=== PATIENT | male | born 1945 | race Caucasian/White ===

== ENCOUNTER 2016-10-16 00:32 | Inpatient (IN) | payer OTHER, MEDICAID ==
[2016-10-16] VITALS (18 sets, daily range): BP systolic 52–127; BP diastolic 40–92
[~2016-10-16] VITALS: Ht 180.3 cm; Wt 68.0 kg
[~2016-10-16 00:32] MED LIST: APAP/HYDROCODON1 T13 PO; BACO TOP; CLEOCIN HCL300 MG PO; COL100 PO; COLACE100 MG PO; COU10 PO; COUMADIN5 MG PO; DILAUDID2 MG PO; ECO81 PO; FLO4 PO; GABAPENTIN100 M2 PO; HIBICLENS118 ML TOP; HYT5 PO; LAC PO; LEVOTHYROXIN0.025 M2 PO; LOV40I SQ; MORPHINE SULFAT15 MG PO; MOTRIN800 MG PO; NEU300 PO; NOR10 PO; NOR10T PO; NORCO1 TA2 PO; NORVASC2.5 MG PO; OXYC; PRI20 PO; SERTRALINE HYDR50 M1 PO; SYN25 PO; TERAZOSIN HCL5 MG PO; TRAMADOL HCL50 MG PO; ULT50 PO; ZOC20 PO; ZOLOFT50 MG PO
--- NOTE | 2016-10-16 00:37 | NUR ---
REC'D A 70/M IN RM 1T BIBA WITH C/O ALOC. PER MEDIC, FOUND UN-RESPONSIVE AT HOME. UPON ARRIVAL, PT BAGGED-MASK, AND UNRESPONSIVE.
--- NOTE | 2016-10-16 00:37 | NUR ---
REC'D A 70/M IN RM 1T BIBA WITH C/O ALOC. PER MEDIC, PT HAD SUDDEN ONSET OF SOB X 30 MIN COTTON BALL BAGGER. THEN PT WAS PLACED ON CPAP. UPON ARRIVAL TO ED, MECHANICAL VENTILATION WITH BVM INITATED AND IO TO LEFT TIBIA. UPON ASSESSMENT, PT DID NOT RESPOND TO STERNAL RUB, RHONCHI SOUND MARIELY, DELAYED CAP REFILL. ON CM.
--- NOTE | 2016-10-16 00:38 | NUR ---
DR FREDERICK AT BEDSIDE FOR INTUBATION INSERTION.
--- NOTE | 2016-10-16 00:56 | NUR ---
DR FREDERICK AT BEDSIDE FOR EJ INSERTION. INITIATED 2500ML BOLUS. PLEASE SEE EMAR.
[2016-10-16 01:24] LABS: BASOPHIL % 0.3 % (0-2); PLATELET COUNT 240 x10^3mcL (130-400); RED CELL DISTRIBUTION WIDTH 14.4 % (11.5-14.5)
--- NOTE | 2016-10-16 01:37 | NUR ---
PT TAKEN TO CT VIA [employer]. ACCOMPANIED BY RT AND MYSELF.
[2016-10-16 01:45] LABS: T3 TOTAL 0.66 ng/mL
[2016-10-16 01:47] LABS: ALBUMIN 2.8 g/dL (3.4-5.0); ALKALINE PHOSPHATASE 25 U/L (46-116); ALT/SGPT 65 U/L (16-63); AST/SGOT 149 U/L (15-37); BILIRUBIN TOTAL 1.16 mg/dL (0.20-1.00); CALCIUM 7.2 mg/dL (8.5-10.1); CARBON DIOXIDE 18.6 mmol/L (21-32); CHLORIDE SERUM 96 mmol/L (98-107); CREATININE SERUM 1.4 mg/dL (0.7-1.3); GFR1 53 mL/min; GLUCOSE SERUM 245 mg/dL (74-106); SODIUM SERUM 129 mmol/L (136-145); TOTAL PROTEIN, SERUM 5.9 g/dL (6.4-8.2)
[2016-10-16 01:48] LABS: C REACTIVE PROTEIN < 0.2 mg/dL (<=0.9)
[2016-10-16 01:49] LABS: POTASSIUM SERUM 2.3 mmol/L (3.5-5.1)
[2016-10-16 01:50] LABS: CK-MB < 0.5 ng/mL (0-3.6); CREATINE KINASE 152 U/L (39-308)
[2016-10-16 01:58] LABS: FREE T4 1.18 ng/dL (0.76-1.46); FREE THYROXINE INDEX 3.2 ug/dL (1.4-4.5); T4(THYROXINE) 8.6 ug/dL (4.7-13.3)
--- NOTE | 2016-10-16 02:34 | NUR ---
MEDICATED PT FOR FEVER. PLEASE SEE EMAR.
--- NOTE | 2016-10-16 02:47 | NUR ---
INITIATED ZOSYN @100ML/HR. PLEASE SEE EMAR.
--- NOTE | 2016-10-16 03:00 | NUR ---
INITIATED MAG SULFATE @ 25ML/HR. PLEASE SEE EMAR.
--- NOTE | 2016-10-16 03:17 | NUR ---
INITIATED POTASSIUM IV @50ML/HR. PLEASE SEE EMAR.
[2016-10-16 03:42] LABS: microscopic required? YES
[2016-10-16 03:43] LABS: urine erythrocyte 3+ (NEGATIVE)
--- NOTE | 2016-10-16 03:57 | NUR ---
REPORT GIVEN TO DI OBRIEN TO ASSUME CARE OF THE PT.
--- NOTE | 2016-10-16 04:15 | NUR ---
PATIENT TRANSFERRED TO ICU VIA GURNEY ACCOMPANIED BY ED RN RT MATT, CHUTE OPERATOR, AND MYSELF. PATIENT TRANSFERRED TO ICU BED WITHOUT INCIDENT VIA DRAW SHEET METHOD. RECEIVED PATIENT WITH GCS SCORE 3. PT IS NONVERBAL, UNABLE TO MAKE NEEDS KNOWN, AND INTUBATED, ETT #7.5, LL25, BREATHING EASY AND UNLABORED VIA VENT WITH THE FOLLOWING SETTINGS: VT 500, PEEP 5, RATE 15, FIO2 70%. PUPILS 2MM AND SLUGGISH BILAT. PT RECEIVED ETOMIDATE AND SUCCINYLCHOLINE IN ED. NO SCLERAL EDEMA. GLOSSY APPEAREANCE TO EYES BILAT. NO DRAINAGE FROM EYES/EARS/NARES. TREACHEA MIDLINE. OGT IN PLACE AND SECURED, AWAITING DR ORDER "OK TO USE". REJ, LT HAND, AND LT IO IN PLACE, CDI, PATENT AND FLUSHING WELL. LT HAND IV SELF D/C UPON ARRIVAL TO UNIT. POTASSIUM CHLORIDE 20MEQ/50ML BAG INFUSING VIA RT HAND IV. LUNG SOUNDS DIMINISHED BILAT. S1, S2 AUSCULTATED. CHEST WALL STABLE. NO S/S OF CP. SKIN IS DRY AND COOL TO TOUCH. CAP REFILL <3 SEC TO BUE AND DELAYED TO BLE. PERIPHERAL PULSES WEAK TO BUE AND BLE. NO EDEMA NOTED. PASSIVE ROM X 4 EXTREMITIES. FOOTDROP TO RLE NOTED. SKIN DISCOLORATION NOTED TO BUE/TORSO/GENITAL/BLE. ABDOMEN FIRM, FLAT, AND NONTENDER TO PALPATION PER FLACC SCALE. NORMOACTIVE BOWEL SOUNDS X 4. LARGE LOOSE BM X1 UPON ARRIVAL TO ICU. LIGHT BROWN COLOR. ROGERS CATHETER DRAINING TO GRAVITY DRAINAGE BAG, CHRISTY COLORED URINE NOTED NO PENILE DISCHARGE. BED IN LOWEST POSITION, SIDE RAILS X2, CALL LIGHT WITHIN REACH, WILL CONTINUE TO MONITOR.
[2016-10-16 04:29] LABS: AMPHETAMINE QUAL UR POSITIVE (NEG <=1000)
--- NOTE | 2016-10-16 04:45 | NUR ---
DR MCCARTY AT BEDSIDE FOR ASSESSMENT, UPDATES PROVIDED, ALL QUESTIONS AND CONCERNS ADDRESSED. NEW ORDERS RECEIVED. WILL CONTINUE TO MONITOR.
--- NOTE | 2016-10-16 05:00 | NUR ---
RT AT BEDSIDE, FIO2 SETTING CHANGED TO 60%, OTHER SETTINGS REMAIN UNCHANGED.
--- NOTE | 2016-10-16 06:01 | NUR ---
DR TOLEDO AT BEDSIDE FOR ASSESSMENT, UPDATES PROVIDED, ALL QUESTIONS AND CONCERNS ADDRESSED. WILL CONTINUE TO MONITOR.
--- NOTE | 2016-10-16 06:05 | NUR ---
RT AT BEDSIDE, FIO2 SETTING CHANGED TO 50%, OTHER SETTINGS REMAIN UNCHANGED.
[2016-10-16 06:06] LABS: CHOLESTEROL/HDL RATIO 4.6; MAGNESIUM 1.4 mg/dL (1.8-2.4); PHOSPHOROUS 2.4 mg/dL (2.5-4.9)
--- NOTE | 2016-10-16 07:40 | NUR ---
PER MD ORDER, URINE OSMAL AND LYTES COLLECTED AT THIS TIME AND SENT TO LAB FOR EVALUATION.
--- NOTE | 2016-10-16 08:19 | NUR ---
PT RR INCREASING TO 33. FLACC = 7. MEDICATING WITH MORPHINE SULFATE 2 MG IVP.
--- NOTE | 2016-10-16 09:29 | NUR ---
PT IS INTUBATED WITH ETT AN OGT.ETT SIZE 7.5, 25LL ETT TO VENT AC/VCV, VT 500, FIO2 50%, PEEP 5, RATE 15. PT UNRESPONSIVE TO STERNAL RUB. BILATERALLY FIXED 2MM PUPILS. RIGHT, LEFT LUNG SOUNDS DIMINISHED. CHEST RISE IS SYMMETRICAL. USE OR ABDOMINAL MUSCLES NOTED. S1 &S2 NOTED, SINUS TACHY, CHEST WALL IS STABLE. SKIN IS COOL AND DRY TO TOUCH. PT HAS DISCOLORATION TO FOREHEAD, BUE, TORSO, GENITALS, AND BLE. SLUGGISH CAP REFILL, PERIPHERAL PULSES WEAK NOTED UPON PALPATION. GENERALIZED WEAKNESS WITH PASSIVE FULL ROM. POSITIONED Q2H. CURRENTLY NPO. ABDOMEN IS SOFT, ROUND, AND NONTENDER TO PALPATION. BM 10/16/16, LOOSE BROWN STOOL. ROGERS TO GRAVITY, CHRISTY COLOR URINE WITH BLOOD NOTED IN URINE. RIGHT EJ IN PLACE CURRENTLY INFUSING 10MCG/KG/MIN OF PROFOPOL, REJ ALSO INFUSING 125M/HR NS. PT HAS PERIPHERAL IV IN LEFT FOREARM, AND LEFT IO ON BLE. PT HAS POSITIVE FAMILY DYNAMICS.
--- NOTE | 2016-10-16 09:34 | NUR ---
TD/LMT ECHO PERFORMED ORDERED.
--- NOTE | 2016-10-16 09:57 | NUR ---
PATIENT WITH LARGE DARK LOOSE STOOL. SENT STOOL FOR OB STOOL. DR TURNER AND DR HUDSON ON UNIT AND MADE AWARE.
--- NOTE | 2016-10-16 10:06 | NUR ---
PT RR INCREASED INTO MID TO HIGH 30S. CHANGED TO PC 15 RR 14 RR NOW 17 VT [id number] CHARGE NURSE NOTIFIED SHE WILL CALL MD FOR ORDER FOR ABG.
--- NOTE | 2016-10-16 10:40 | NUR ---
RECEIVED CALL FROM [facility] STATING THAT SPUTUM IS CONTAMINATED WITH SALIVA. RT MADE AWARE AND WILL RECOLLECT CULTURE.
--- NOTE | 2016-10-16 10:45 | NUR ---
PATIENT WITH LABORED BREATHING. RESPIRATIONS IN 30'S. WILLY RT AT BEDSIDE AND CHANGED VENT SETTINGS TO PRESSURE CONTROL PS15, RATE 14, PEEP 5, FIO2 50%. PATIENT APPEARS MUCH MORE RELAXED WITH RR 18-22 AND NO LABORED BREATHING NOTED. ABG TO FOLLOW PER MD ORDER. WILL CONTINUE TO MONITOR.
--- NOTE | 2016-10-16 11:10 | NUR ---
WILLY JADE TELEPHONED UNIT AND REPORTED ABG. DR HUDSON ON UNIT AND MADE AWARE. NO NEW ORDERS RECEIVED. WILL CONTINUE TO MONITOR.
--- NOTE | 2016-10-16 11:34 | NUR ---
US TECH, DR HUDSON AND DR TURNER AT BEDSIDE. TIME OUT TAKEN FOR US GUIDED RIGHT VS LEFT IJ CENTRAL LINE PLACEMENT. [address] TO [address] TURNER. WILL CONTINUE TO MONITOR.
[2016-10-16 11:51] LABS: CALCIUM 7.8 mg/dL (8.5-10.1); CARBON DIOXIDE 16.8 mmol/L (21-32); CHLORIDE SERUM 102 mmol/L (98-107); CREATININE SERUM 1.1 mg/dL (0.7-1.3); GFR1 > 60 mL/min; GLUCOSE SERUM 115 mg/dL (74-106); POTASSIUM SERUM 3.2 mmol/L (3.5-5.1); SODIUM SERUM 133 mmol/L (136-145)
--- NOTE | 2016-10-16 12:10 | NUR ---
PATIENT'S DAUGHTER BROUGHT ALL OF PATIENT'S HOME MEDICATIONS TO THE UNIT TO COMPLETE MED REC. UPON REVIEW OF PATIENT'S MEDICATIONS, IT IS NOTED THAT ALL PAIN MEDICATIONS DISPENSED IN BUBBLE PACKS ARE COMPLETELY EMPTY. REFILL DATES ARE RECENT 10/05/16. DR HUDSON AND DR TURNER ON UNIT AND MADE AWARE. COPY OF EMPTY BUBBLE PACKS TAKEN AND PLACED IN CHART.
[2016-10-16] MEDS ORDERED: MORPHINE SULFAT60 MG (12:44)
[2016-10-16] MEDS ORDERED: CLONIDINE HCL0.1 MG (12:48)
--- NOTE | 2016-10-16 12:49 | NUR ---
PT'S DAUGHTER AT BEDSIDE, STS THAT PT'S CAREGIVER HAD RAISED CONCERN THAT PT IS ABUSING PRESCRIBED PAIN MEDICATIONS AND THAT THE CAREGIVER WAS NOT ABLE TO CONTROL THE PT'S BEHAVIOR AND WAS RECOMMENDING THAT THE PT GO BACK TO A CONVALESCENT HOME. PT'S DAUGHTER STS THAT THE FAMILY WAS GOING TO MEET WITH THE PT TODAY AND DISCUSS HAVING PT GO BACK TO A CONVALESCENT HOME, BUT THE EVENTS LEADING UP THE PT'S HOSPITALIZATION TRANSPIRED LAST NIGHT. PT'S DAUGHTER ALSO STS THAT PT'S SON FOUND A GLASS PIPE/CRACK PIPE AT THE PT'S RESIDENCE WHEN RETREIVING HOME MEDS FOR MED REC.
--- NOTE | 2016-10-16 12:53 | NUR ---
DR YAÑEZ AT BEDSIDE TO ASSESS PT. DISCUSSED WITH PT'S DAUGHTER ON PT'S STATUS, POC, AND OUTLOOK AT THIS TIME.
--- NOTE | 2016-10-16 12:55 | NUR ---
VERSED TITRATED TO 2 MG/HR AND FENTANYL @ 1 MCG/KG/HR D/T AGITATION AND LOW MINUTE VOLUME.
[2016-10-16] MEDS ORDERED: COUMADIN6 MG (13:01)
[2016-10-16] MEDS ORDERED: COUMADIN1 MG (13:01)
[2016-10-16] MEDS ORDERED: LOPERAMIDE HCL2 M1 (13:02)
[2016-10-16] MEDS ORDERED: PHOSLO667 MG (13:04)
[2016-10-16] MEDS ORDERED: SENNA8.6 M2 (13:05)
[2016-10-16] MEDS ORDERED: TRA100 (13:07)
--- NOTE | 2016-10-16 14:14 | NUR ---
3600 UNITS OF HEPARIN GIVEN IVP FOR LOADING DOSE, HEPARIN DRIP INITIATED @ 700 UNITS/HR. FENTANYL TITRATED TO 0.5 MCG/KG/HR AND VERSED TO 0.5 MG/HR D/T BP 80/64.
--- NOTE | 2016-10-16 19:00 | NUR ---
RECEIVED REPORT FROM SCARLETT SEVILLA, UPDATES PROVIDED, WILL ASSUME TOTAL CARE.
--- NOTE | 2016-10-16 19:05 | NUR ---
RECEIVED PATIENT SEDATED ON FENT 2MCG/HR AND VERSED 2 MG/HR. MRSS 4. PT NONVERBAL DUE TO ETT. PT HAS NO EYE OPENING RESPONSE. PT FLEXES TO PAIN. GCS SCORE 5. PUPILS 2MM AND SLUGGISH RESPONSE TO LIGHT BILAT. PT HAS ETT AND OGT IN PLACE & SECURED. NO SCLERAL EDEMA NOTED. TRACHEA IS MIDLINE. NO DRAINAGE FROM EYES/EARS/NARES. RIJ TLC IN PLACE, CDI, PATENT AND INFUSING. ETT #7.5, 25LL. ETT TO VENT PCV MODE PRESSURE 15 FIO2 50, RATE 14, PEEP 5 LUNG SOUNDS DIMINISHED BILATERALLY. CHEST RISE SYMMETRICAL AND UNLABORED BREATHING VIA VENT. SCANT CLEAR SECRETIONS NOTED. S1, S2 AUSCULTATED. CHEST WALL STABLE. NO S/S OF CP AT THIS TIME. SKIN IS DRY AND WTT. PERIPHERAL PULSES WEAK TO BUE AND BLE. CAP REFILL IS <3 SEC TO BUE AND DELAYED TO BLE. CVP 5, FOB CALIBRATED PER PROTOCOL. GENERALIZED WEAKNESS, PASSIVE FULL ROM X 4 EXTREMITIES. FOOTDROP NOTED TO RLE. PT REPOSITIONED Q2H PER PROTOCOL. NO DIET ORDER AT THIS TIME. NO N/V/D NOTED. PT ABD IS SOFT, FLAT, AND NONTENDER TO PALPATION. ACTIVE BOWEL SOUNDS X4Q. NO BM NOTED AT THIS TIME. ROGERS CATHETER TO GRAVITY DRAINAGE BAG, CHRISTY COLOR URINE NOTED. NO PENILE DRAINAGE NOTED. SKIN DRY, WTT, INTACT. BED IN LOWEST POSITION, HOB ELEVATED 30 DEGREES, ORAL CARE PROVIDED PER VAP PROTOCOL. CALL LIGHT WITHIN REACH. WILL CONTINUE TO MONITOR.
--- NOTE | 2016-10-16 19:44 | NUR ---
PTT RESULT >150, HEPARIN GTT STOPPED PER PROTOCOL, WILL AWAIT LAB RESULT.
--- NOTE | 2016-10-16 20:00 | NUR ---
RT AT BEDSIDE.
--- NOTE | 2016-10-16 21:30 | NUR ---
LAB AT BEDSIDE.
--- NOTE | 2016-10-16 22:57 | NUR ---
PTT RESULT 80.2 HEPARIN GTT RESUMED TO 600U/HR PER PROTOCOL.
[2016-10-16 23:06] LABS: ERYTHROCYTE SED RATE 2 mm/hr (0-20)
[2016-10-17] VITALS (17 sets, daily range): BP systolic 70–140; BP diastolic 59–89
--- NOTE | 2016-10-17 00:15 | NUR ---
PATIENT HAD LARGE LOOSE, WATERY BOWEL MOVEMENT X 1. HYGIENE PROVIDED, LINENS CHANGED, NO SIGNS OF REDNESS IN JESSICA-AREA.
--- NOTE | 2016-10-17 01:30 | NUR ---
RT AT BEDSIDE.
--- NOTE | 2016-10-17 03:00 | NUR ---
LAB AT BEDSIDE
[2016-10-17 03:55] LABS: CARBON DIOXIDE 20.3 mmol/L (21-32); CHLORIDE SERUM 108 mmol/L (98-107); CREATININE SERUM 1.1 mg/dL (0.7-1.3); GFR1 > 60 mL/min; GLUCOSE SERUM 99 mg/dL (74-106); MAGNESIUM 1.9 mg/dL (1.8-2.4); PHOSPHOROUS 3.6 mg/dL (2.5-4.9); POTASSIUM SERUM 3.2 mmol/L (3.5-5.1); SODIUM SERUM 139 mmol/L (136-145)
--- NOTE | 2016-10-17 04:17 | NUR ---
PATIENT HAD LARGE LOOSE, WATERY BOWEL MOVEMENT X 1. HYGIENE PROVIDED, LINENS CHANGED, ROGERS CARE PROVIDED, NO SIGNS OF REDNESS IN JESSICA-AREA.
--- NOTE | 2016-10-17 04:20 | NUR ---
PTT RESULT 98.1 HEPARIN GTT TO BE HELD FOR 1 HOUR AND INFUSION TO BE REDUCED BY 200 UNITS/HR PER PROTOCOL. WILL AWAIT LAB PTT RESULT.
--- NOTE | 2016-10-17 04:24 | NUR ---
RT AT BEDSIDE.
[2016-10-17 04:25] LABS: BASOPHIL % 0 % (0-2); RED CELL DISTRIBUTION WIDTH 15.1 % (11.5-14.5)
[2016-10-17 04:26] LABS: PLATELET COUNT 80 x10^3mcL (130-400)
--- NOTE | 2016-10-17 05:15 | NUR ---
DR KING AT BEDSIDE FOR ASSESSMENT, UPDATES PROVIDED, ALL QUESTIONS AND CONCERNS ADDRESSED. NEW ORDERS RECEIVED. WILL CONTINUE TO MONITOR.
--- NOTE | 2016-10-17 05:20 | NUR ---
HEPARIN GTT DECREASED TO 400U/HR.
--- NOTE | 2016-10-17 05:22 | NUR ---
RT AT BEDSIDE. FIO2 DECREASED TO 40%, OTHER VENT SETTINGS REMAIN UNCHANGED.
--- NOTE | 2016-10-17 05:47 | NUR ---
DR TOLEDO AT BEDSIDE FOR ASSESSMENT, UPDATES PROVIDED, ALL QUESTIONS AND CONCERNS ADDRESSED. NO NEW ORDERS RECEIVED. WILL CONTINUE TO MONITOR.
--- NOTE | 2016-10-17 07:00 | NUR ---
RECEIVED REPORT FROM NOC SHIFT RN CAMILLE, ALL QUESTIONS AND CONCERNS ADDRESSED AT THIS TIME, WILL ASSUME ALL CARE.
--- NOTE | 2016-10-17 07:19 | NUR ---
REPORT GIVEN TO NUNU SEVILLA, UPDATES PROVIDED, ALL QUESTIONS AND CONCERNS ADDRESSED.
--- NOTE | 2016-10-17 07:30 | NUR ---
RECEIVED PT INTUBATED WITH 7.5 ETT, 25 LL, ON PC, PRESSURE 15, PEEP 5, FI02 40%, RATE 14, BUL RHONCHI, BLL CLEAR, NO SECRETIONS REMOVED AND ORAL CARE PROVIDED PER VAP PROTOCOL. PT SEDATED ON 2 MCG/KG/HR FENT, 2 MG/HR VERSED, RSS 4, PT HAS A BRISK RESPONSE TO PAINFUL STIMULI BUT DOES NOT FOLLOW COMMANDS, EYES DO NOT OPEN SPONTANOUSLY, PUPILS ARE SLUGGISH 2 MM BILATERALLY, NO S/S OF HEADACHE. PT WITH RIJ INFUSING, NS 126, K RIDER, HEPARIN 400 UNITS/HR, ALL PORTS PATENT AND FLUSHING WITH CDI DRESSING. PT HAS OGT IN PLACE, ABD IS SOFT, FLAT, SYMMETRICAL AND NONTENDER TO PALPATION PER FLACC SCALE, PT HAS HYPERACTIVE BOWEL SOUNDS X 4 QUADRANTS, PT WITH FLEXISEAL RECTAL TUBE IN PLACE DRAINING TO GRAVITY LOOSE DARK BROWN STOOL. PT HAS ROGERS CATH IN PLACE DRAINING TO GRAVITY CHRISTY COLORED URINE, NO PENILE DISCHARGE OR SCROTAL EDEMA NOTED. PT SKIN IS INTACT WITH VITILIGO THROUGHOUT BODY. PT ON SPANISH MOSS PICKER, SINUS TACHYCARDIA NOTED, NO PVCS NOTED. WILL CONTINUE TO MONITOR PT AT THIS TIME.
--- NOTE | 2016-10-17 08:05 | NUR ---
MAKAYLA RT AT BEDSIDE FOR BREATHING TX.
--- NOTE | 2016-10-17 08:59 | NUR ---
DR. GARCIA, RESIDENTS, HOME IMPROVEMENT ADVISOR AND PRIMARY RN AT BEDSIDE FOR MORNING ROUNDS. PLAN OF CARE DISCUSSED. WILL CONT TO MONITOR.
--- NOTE | 2016-10-17 09:10 | NUR ---
HEPARIN DRIP DC'D AT THIS TIME PER DR.FERNANDEZ SMITH.
--- NOTE | 2016-10-17 09:11 | NUR ---
MAKAYLA RT AT BEDSIDE FOR ABG.
--- NOTE | 2016-10-17 10:32 | NUR ---
Initial Nutrition Assessment Dx: Acute Respiratory Failure with Sepsis, Non Stemi PMHx: DM, hepatitis C, neuropathy in hands and feet bilaterally, hypothyroidism, depression, BPH, HTN PSHx: L archillies tendon surgical repair (11 years old), vasectomy (1979), abd abscess I&D Labs: K 3.2 L, BG 99, BUN 28 H, WBC 11.8 H, H/H 11.7/35 L; (10/16) ALB 2.8 L, TBili 1.16 H, AST 149 H, ALT 65 H, LDL 105 H, Troponin 0.56 H, Lipase 622 H, A1C 6.4 H, Ammonia 56 H, Lactic Acid 4.4 H Meds: Colace, D50, humulin R, lactulose syrup, morphine, KCl, Pepcid, NS IV, theragran, versed, zofran Current Diet Order: N/A Ht: 71", 5' 11". Wt: 150 lb, 68 kg. BMI: 20.9 kg/m2 (Normal) IBW: 172 lb, 78 kg. %IBW: 87%. UBW: Daughter unsure, however, stated that pt looks about the same weight. Age: 70 Y/O M Food Allergies: Skin: Intact. Dayo 10. No pressure injuries per RN. Edema: None GI: Abd soft, flat, non-tender. Hyperactive bowel sounds. Last BM 10/17. Flexiseal in place. Loose dark brown stool. Noted pt on lactulose syrup. Stool Output: (10/16) x5; (10/17) x2 I/O: 3257/1606 (+1651 ml) Nutrition Consult: Tube Feeding, pt intubated and sedated. Thank you for your consult. Pt found with acute respiratory failure secondary to possible aspiration pneumonia vs pleural effusion vs CVA, possible severe sepsis, likely secondary to aspiration pneumonia per doctor's notes. Per doctor's progress note 10/17, pt had 2 loose stools overnight, flexiseal was attempted yesterday, will reattempt today, Dr. Vogel consulted, INR >2 stop heparin drip, intubated on fentanyl, pt intubated and sedated. Pt seen +intubated, sedated, +ETT to vent support, +OGT in place, daughter at bedside during RD visit, participated in RD verbal interview. Problem with: N: None. V: None. D: None. C: None. Problems with: Chewing: Yes. Pt has no teeth per daughter, has dentures but misplaced them. Swallowing: None. Noted pt is intubated at this time Recent Weight Change: None per daughter. % Weight Change: N/A Vitamin/Supplement use: Ensure - Per daughter, stated that pt has been receiving Ensure oral supplements but unsure if pt has been drinking them Diet at Home: Regular; Has very good appetite prior to admission Physical Activity: Bed bound Education: RD explained rationale for tube feeding pt, daughter verbalizes understanding. Estimated Nutritional Needs Based CBW 150 lb, 68 kg. Temperature: 98.7 F/37 C. Ventilator in L/min: 9.6. Energy: 1675 kcal/day (PSU 2003b for Ventilator Support) Protein: 102-136 gm/day (1.5-2 gm/kg for Acute Respiratory Failure, Sepsis) Fluids: 1700 ml/day (25 ml/kg for Geriatric Maintenance) or per doctor Nutrition Diagnosis Increase nutritional (energy, protein) needs related to increase metabolic demands as evidenced by pt with possible severe sepsis, elevated WBC 11.8, lactic acid 4.4 Intervention 1. Consider advance diet per doctor if/when medically appropriate. 2. If nutrition support is warranted, consider initiation of TF Nutren Pulmonary at 20 ml/hr, increase 10 ml Q6h to goal 45 ml/hr, ProSource TID, Free Water Flush: 100 ml Q6h via OGT. This provides 1800 kcal (107% of kcal goal), 118 gm protein (100% of protein goal), 1245 ml free water daily. 3. Replete K+ Monitor/Evaluate Goal: NPO <5-7 days; Diet advancement Monitor: NPO status, diet advancement, labs (ammonia, BG), skin integrity, GI function F/U in 2-3 days as HIGH risk (10/19-10/20)
--- NOTE | 2016-10-17 11:13 | NUR ---
FENT TITRATED DOWN TO 1 MCG/KG/HR AT THIS TIME IN PREPARATION FOR CPAP TRIALS PER .
--- NOTE | 2016-10-17 12:10 | NUR ---
AT BEDSIDE, UPDATES PROVIDED. TO ORDER 250 ML NS BOLUS AND ADD COUMADIN NG. PAGED AT THIS TIME FOR DIET ORDERS PER FNS CONSULT RECOMMENDATIONS. WILL CONTINUE TO MONITOR.
--- NOTE | 2016-10-17 12:25 | NUR ---
CPAP TRIAL STARTED AT THIS TIME. CPAP 10, PSV 10, FIO2 30%. RR 17, VT 704, O2 98%, HR 110, BP 85/69 Pt RESPONDING TO VERBAL COMMANDS. WILL MONITOR.
--- NOTE | 2016-10-17 12:25 | NUR ---
MAKAYLA RT AT BEDSIDE TO PLACE PT ON CPAP 01/17 AT THIS TIME. WILL CONTINUE TO MONITOR PT.
--- NOTE | 2016-10-17 12:38 | NUR ---
AT BEDSIDE, UPDATES PROVIDED, PER , EXCERCISE PT FOR 30 MINUTES AND LOWER SEDATION NEEDED. PT ABLE TO FOLLOW COMMANDS AT THIS TIME AND TOLERATING CPAP MODE. WILL CONTINUE TO MONITOR PT.
--- NOTE | 2016-10-17 13:05 | NUR ---
PATIENT SWITCHED BACK TO A/C MODE PER DR. MARADIAGA. VENT SETTINGS: VC 14, 500, +5, 30%. RN NOTIFIED, WILL MONITOR.
--- NOTE | 2016-10-17 16:00 | NUR ---
NUTREN PULMONARY 20 ML/HR WITH A FWF OF 100 Q6H INITIATED VIA OGT AT THIS TIME VIA DR ORDER. WILL ADVANCE TOLERATED PER DR ORDER.
--- NOTE | 2016-10-17 16:07 | NUR ---
PT RECTAL TUBE LEAKED AT THIS TIME. PT CLEANSED AND NEW LINEN PROVIDED. WILL CONTINUE TO MONITOR PT AT THIS TIME.
--- NOTE | 2016-10-17 16:43 | NUR ---
PT GIVEN FULL BED BATH WITH GOWN AND LINEN CHANGE, CHG WIPES USED PER PROTOCOL AND ROGERS CARE PROVIDED PER PROTOCOL. WILL CONTINUE TO MONITOR PT AT THIS TIME.
--- NOTE | 2016-10-17 19:20 | NUR ---
REPORT RECEIVED FROM NUNU SEVILLA TO ASSUME CARE. ALL QUESTIONS AND CONCERNS ADDRESSED.
--- NOTE | 2016-10-17 21:55 | NUR ---
NUTREN PULMONARY INCREASED TO 30 ML/HR AT THIS TIME, GOAL OF 45. GASTRIC RESIDUAL OF 30 ML, TOLERATING WELL. WILL CONTINUE TO MONITOR.
--- NOTE | 2016-10-17 22:20 | NUR ---
RT AT BEDSIDE TO ASSESS PT.
[2016-10-18] VITALS (17 sets, daily range): BP systolic 104–139; BP diastolic 76–101; Ht 180.3 cm; Wt 68.0 kg
--- NOTE | 2016-10-18 00:25 | NUR ---
RT AT BEDSIDE TO ASSESS PT.
--- NOTE | 2016-10-18 04:40 | NUR ---
RECEIVED REPORT FROM DI MELGOZA, WILL ENDORSE CARE
--- NOTE | 2016-10-18 04:40 | NUR ---
REPORT GIVEN TO WANDA SEVILLA TO ASSUME CARE. ALL QUESTIONS AND CONCERNS ADDRESSED.
--- NOTE | 2016-10-18 06:03 | NUR ---
SEDATION VACATION STARTED, SCD'S APPLIED, WILL CONTINUE TO MONITOR.
--- NOTE | 2016-10-18 06:25 | NUR ---
PT FOLLOWING COMMANDS CAN RESPOND TO YES NO QUESTIONS, WILL CONTINUE TO MONITOR
--- NOTE | 2016-10-18 06:50 | NUR ---
NUTREN PULMONARY TITRATED TO 40ML/HR, TOLERATING. WILL CONTINUE TO MONITOR
--- NOTE | 2016-10-18 07:10 | NUR ---
REPORT GIVEN TO RN MIN, ALL QUESTIONS ADDRESSED, WILL ENDORSE CARE
--- NOTE | 2016-10-18 07:25 | NUR ---
DR. MARADIAGA IN ROOM ASSESSING PT. PER DR. MARADIAGA PT IS TO BE PUT ON CPAP TODAY FOR WEANING.
--- NOTE | 2016-10-18 08:01 | NUR ---
PT IS REPSONSIVE VERBAL STIMULIS AND WITHDRAWLS FROM PAIN. BL EQUAL PUPILS REACTIVE TO LIGHT 2MM, SLUGGISH. PT IS ABLE TO FOLLOW VERBAL COMMANDS AND OFF SEDATION AT THIS TIME. 7.5 ETT TO VENT ON AC MODE. OGT IN PLACE AND SECURE. AC MODE SETTING 30%FIO2, VT 500, LPM 25, RATE 14, PEEP 5. VAP CARE PROVIDED. LIGHT WHITE SCANT PLEGHM FROM IN LINE SUCTION. BL UPPER LOBES RONCHI LUNG SOUNDS, DIMINISH BL BASES. SYMMETRIC CHEST RISE. TRACE EDEMA TO BLE. SCD IN PLACE, CAP REFILL <3SEC. S1S2 PRESENT UPSON AUSCULATIONS. NO SIGNS OF CHEST PAIN. PT IS COOL TO TOUCH. SKIN INTACT. PT ON NUTREN PUL CONTINEUOUS FEEDING AT 30ML/HR FLUSHES 100ML OF WATER Q H6RS. 30ML OF STOMACH RESIDUALS. BS ACTIVE X4, NON TENDER ABD PALPATIONS. FLEXITUB IN PLACE, LOOSE DARK ARECHIGA COLOR. RIJ IN PLACE AND PATENT. TRACHEA AT MIDLINE. NO DRAINAGE NOTED FROM EENT. NS INFUSING AT20ML/HR. BED AT LOW AND CALL LIGHT WITHIN REACH.
--- NOTE | 2016-10-18 08:06 | NUR ---
RT YESSICA IN ROOM IMPLMENTING BREATHING TX. PT TOLERATING WELL.
--- NOTE | 2016-10-18 08:07 | NUR ---
RT YESSICA AT BEDSIDE TO PUT PT ON CAP, PT TOLERATING WELL.
--- NOTE | 2016-10-18 08:28 | NUR ---
DR. GARCIA, RESIDENTS, DIVISION OFFICER [employer] DEPARTMENT AND PRIMARY RN AT BEDSIDE FOR MORNING ROUNDS. PLAN OF CARE DISCUSSED. PT CURRENTLY ON CPAP. WILL CONT TO MONITOR.
--- NOTE | 2016-10-18 10:06 | NUR ---
ELEVATED HR TRENDING IN HIGH 120'S B/P 163/103 RSS 5, STARTED FENTALY AT 0.5MCG/KG/HR AND VERSED AT 1MG/HR. WILL TIATRATE DRIPS TO RSS 3. WILL CONTINUE TO MONITOR. BED AT LOW AND CALL LIGHT WITHIN REACH.
--- NOTE | 2016-10-18 10:32 | NUR ---
PT'S B/P 158/105 INCREASED FENANYL TO 1MG/HR.
--- NOTE | 2016-10-18 11:52 | NUR ---
PT IS SEDATED AT THIS TIME RSS 5 INFUSING FENTANL AT 1MG/KG/HR, VERSED AT 1MG/HR. PT WITHDRAWLS FROM PAINFUL STIMULIS. BL PUPILS EQUAL AND REACTIVE TO LIGHT 2MM, SLUGGISH. NO SIGNS OF ESTRELLA AND DIZZINESS. 7.5 ETT TO VENT. ON AC MODE 30% FIO2, LPM 25, RATE 14, PEEP 5, VT 500. VAP CARE PROVIDED AND NO OUTPUT FROM INLINE SUCTION. SYMMETRIC CHEST RISE. RHONCHI LUNG SOUNDS BL UPPER LOBES AND DMINISHED LUNG SOUND ON BL BASES. BS ACTIVE X4 QUADRANTS. ON NUTREN PUL CONTINEOUS FEEDING 30ML/HR AND FLUSHES 100ML OF WATER Q6HRS. FLEXISEAL IN PLACE, DARK ARECHIGA COLOR BM. ROGERS CATH DRAINING BY GRAVITY DARK TEA COLOR URINE. NO CLOTS OR SEDIMENTS IN URINE. BED AT LOW AND CALL LIGHT WITHIN REACH.
[2016-10-18 12:37] LABS: BASOPHIL % 0.4 % (0-2)
[2016-10-18 12:38] LABS: CARBON DIOXIDE 20.2 mmol/L (21-32); CHLORIDE SERUM 114 mmol/L (98-107); CREATININE SERUM 0.9 mg/dL (0.7-1.3); GFR1 > 60 mL/min; GLUCOSE SERUM 156 mg/dL (74-106); SODIUM SERUM 142 mmol/L (136-145)
[2016-10-18 12:39] LABS: POTASSIUM SERUM 2.5 mmol/L (3.5-5.1)
[2016-10-18 12:47] LABS: PLATELET COUNT 93 x10^3mcL (130-400); RED CELL DISTRIBUTION WIDTH 15.6 % (11.5-14.5)
--- NOTE | 2016-10-18 14:21 | NUR ---
PT RECIEVING BREATHING TX AT BEDSIDE. PT TOLERATING TX WELL.
--- NOTE | 2016-10-18 15:25 | NUR ---
PT IS SEDATED WITH FENTANL INFUSING AT 1MCG/KG/HR, VERSED AT 1MG/HR RSS5. WILL TIATRATE SEDATION RSS 4. BL PUPILS EQUAL AND NONREACTIVE TO LIGHT 1MM, FIXED. PT REPONSED TO PAINFUL STIMULIS. RIJ PATENT AND INTACT, TRACHEA AT MIDLINE. 7.5 ETT TO VENT AND OGT TUBE IN PLACE AND SECURE. PT ON AC MODE 30%FIO2, LPM25, RATE 14, VT 500, PEEP 5. VAP CARE PROVIDED, NO OUTPUT FROM INLINE SUCTION. DIMINISH BL LUNG SOUNDS. SYMMETRIC CHEST RISE. NO SIGNS OF SOB. NS INFUSING AT 20ML/HR TO RIJ. BS ACTIVE X4 QUADRANTS, ABD SOFT AND ROUND. 40ML OF RESIDUALS IN STOMACH, RESIDUALS RETURNED BACK TO PT. NO SIGNS OF FACIAL GRIMACING OR GAURDING. BED AT LOW AND CALL LIGHT WITHIN REACH.
--- NOTE | 2016-10-18 16:57 | NUR ---
DR. ONOFRE AT BEDSIDE ASSESSING PT.
--- NOTE | 2016-10-18 18:23 | NUR ---
PT HAS FACIAL GRIMACING AND PT GESTURED TO PAIN MEDICTION WHEN OFFERED. WILL MEDICATE PER EMAR.
--- NOTE | 2016-10-18 19:10 | NUR ---
REPORT RECEIVED FROM MIN RN. ALL QUESTIONS AND CONCERNS ADDRESSED. PT IS INTUBATED AND SEDATED ON FENTANYL AND VERSED. ETT TUBE CONNCETED TO VENTILATOR. RIJ PRESENT/SECURE. OGT PRESENT/SECURE. TUBE FEEDING INFUSING VIA PUMP. ROGERS CATHETER DRAINING YELLOW URINE TO GRAVITY. FLEXISEAL PRESENT AND DRAINING TO GRAVITY. SCD'S IN PLACE. 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 NO S/SX OF DISTRESS. BED IN VIEW OF NURSES STATION. WILL CONTINUE TO MONITOR.
--- NOTE | 2016-10-18 19:12 | NUR ---
REPORT GIVEN TO ABAD SEVILLA. ENDORSED ALL CARE.
--- NOTE | 2016-10-18 19:30 | NUR ---
TUBE FEEDING INCREASED TO GOAL RATE OF 45 ML/HR WITH FWF 100 ML Q6H. 10 ML OF MILKY GASTRIC RESIDUAL. WILL CONTINUE TO MONITOR.
--- NOTE | 2016-10-18 20:00 | NUR ---
RUTHY JADE AT BEDSIDE TO ADMINISTER BREATHING TREATMENT. WILL CONTINUE TO MONITOR.
[2016-10-19] VITALS (14 sets, daily range): BP systolic 122–157; BP diastolic 84–108
--- NOTE | 2016-10-19 04:07 | NUR ---
RUTHY JADE AT BEDSIDE FOR VENT CHECK.
[2016-10-19 05:37] LABS: BASOPHIL % 0.2 % (0-2)
[2016-10-19 05:43] LABS: CALCIUM 8.4 mg/dL (8.5-10.1); CARBON DIOXIDE 22.8 mmol/L (21-32); CHLORIDE SERUM 114 mmol/L (98-107); CREATININE SERUM 0.8 mg/dL (0.7-1.3); GFR1 > 60 mL/min; GLUCOSE SERUM 138 mg/dL (74-106); SODIUM SERUM 144 mmol/L (136-145)
[2016-10-19 05:44] LABS: POTASSIUM SERUM 2.8 mmol/L (3.5-5.1)
[2016-10-19 06:01] LABS: PLATELET COUNT 102 x10^3mcL (130-400); RED CELL DISTRIBUTION WIDTH 15.6 % (11.5-14.5)
--- NOTE | 2016-10-19 07:00 | NUR ---
REPORT RECEIVED AT THIS TIME AT BEDSIDE. ALL QUESTIONS ANSWERED, ALL CONCERNS ADDRESSED.
--- NOTE | 2016-10-19 07:20 | NUR ---
REPORT GIVEN TO JOSESITO SEVILLA. ALL QUESTIONS ANSWERED AND CONCERNS ADDRESSED.
--- NOTE | 2016-10-19 07:30 | NUR ---
PT ASSESSED AT THIS TIME. PT ON SEDATION VACATION AT THIS TIME FOR CPAP TRIAL. PT HAS BILAT SOFT WRIST RESTRAINTS IN PLACE FOR SAFETY. PT HAS OGT AND ETT IN PLACE AT THIS TIME. PT ON VENTILATOR. ROGERS IN PLACE DRAINING WELL. FLEXISEAL IN PLACE DRAINING MUCOID/LIQUID STOOL TO GRAVITY. WILL CONTINUE TO MONITOR PT'S STATUS THROUGHOUT SHIFT.
--- NOTE | 2016-10-19 08:00 | NUR ---
SEDATION REINITIATED AT THIS TIME VERSED AT 0.5MG/HR AND FENTANYL AT 1MCG/KG/HR
--- NOTE | 2016-10-19 08:40 | NUR ---
DR GARCIA AND RESIDENTS ROUNDING. UPDATES PROVIDED. NEW ORDERS RECEIVED
--- NOTE | 2016-10-19 11:05 | NUR ---
PT CONTINUES TO BE RESTLESS IN BED. VERSED INCREASED TO INITIAL RATE OF 1MG/HR
--- NOTE | 2016-10-19 11:37 | NUR ---
DR YAÑEZ IN TO SEE PT AT THIS TIME. UPDATES PROVIDED. NO NEW ORDERS RECEIVED.
--- NOTE | 2016-10-19 12:00 | NUR ---
PT REASSESSED AT THIS TIME. PT REMAINS ORALLY INTUBATED AT THIS TIME. SEDATION IN PLACE. VERSED AT 1MG/HR AND FENTANYL AT 1MCG/KG/HR. PT'S MRSS 4. PT HAS ROGERS CATHETER AND FLEXISEAL IN PLACE. NO ACUTE CHANGES NOTED IN PT STATUS. WILL CONTINUE TO MONITOR.
--- NOTE | 2016-10-19 13:20 | NUR ---
DR MARADIAGA AT BEDSIDE AT THIS TIME. UPDATES PROVIDED AT THIS TIME. PT PLACED ON CPAP /. ABG TO BE PERFORMED IN 30MIN.
--- NOTE | 2016-10-19 13:44 | NUR ---
WOUND CARE EVALUATION NOTE REASON FOR EVALUATION: LOW EMMANUEL SCORE COMPLETE SKIN ASSESSMENT DONE ON THIS 70 Y/O MALE ADMITTED FROM HOME TO [facility] WITH INITIAL DX: SEVERE RESPIRATORY DISTRESS AND PAST MEDICAL HX INCLUDE DM, NEUROPATHY, HEPATITIS C, HYPOTHYRODISM, DEPRESSION, BPH AND HTN. MEDICATIONS INCLUDE PIPERACILLIN, LEVOFLOXACIN, HUMANLIN R INSULIN, AND MORPHINE SULFATE. LABS ARE WBC 5.6, H/H 8.2/25 BLOOD GLUCOSE 132, PT/INR 15.2/1.4 AND ALBUMIN 2.8. PT. IS INTUBATED AND SEDATED, F/C #16FR PATENT WITH CHRISTY COLOR URINE OUTPUT, OGTF NUTREN PULMONARY AT 45ML/HR AND FWF 100 ML Q6H PT. TOLERATE WELL. DARK GREENISH LIQUID STOOL ABOUT 150ML IN BAG AND PRIMARY NURSE NOTIFY OF RECTAL TUBING LEACKAGE. PT. SKIN WAR, DRY AND INTACT, WNL. DARKER PIGMENTATION TO BLE , GROINS AND PERINEAL AREAS. ARTERIAL US DONE, SOME HAIR GROWTH BLE, DORSAL PEDAL PULSES PRESENT, AND STRONG, NO EDEMA, NO ERYTHEMA NOTICE. THICK TOE NAILS WITH CAPILLARY REFILL >3 SEC. PLAN OF CARE DISCUSSED WITH PRIMARY NURSE. INTEGUMENTARY: NASAL PASSAGE AND ORAL MEMBRANE DRY AND INTACT PERINEAL SLIGHTLY REDNESS-MAD LEFT AND RIGHT HEELS CALLUSES RECOMMENDATIONS: -CLEANSE PERINEAL AREA WITH SOAP AND WATER, PAT DRY, APPLY Z GUARD BID AND PRN IF SOILING TURN AND REPOSITION Q2H -ASSESS AND MONITOR SKIN CONDITION DURING POSITION CHANGE, PLEASE PAY ATTENTION ON PERINEAL AREA, KEEP DRY AND CLEAN AT ALL TIME. - OFF LOAD BILATERAL HEELS BY PLACING PILLOWS UNDER CALVES AT ALL TIMES, UNLESS OTHERWISE, CONTRAINDICATED. -PRESSURE REDISTRIBUTION SURFACE THERAPY. -CONTINUE RD RECOMMENDATIONS RECOMMENDATIONS DISCUSSED WITH PRIMARY PRIMARY RN WILL FOLLOW UP PT. Q7-10 DAYS AND PRN. PLEASE CONTACT WOUND CARE NURSE FOR ANY QUESTIONS.
--- NOTE | 2016-10-19 14:03 | NUR ---
ROBY JADE AT BEDSIDE FOR ABG
--- NOTE | 2016-10-19 14:40 | NUR ---
DR MARADIAGA AT BEDSIDE AT THIS TIME. ORDER RECEIVED TO EXTUBATE PT. PT IS TO BE KEPT ON UNIT X 24HOURS.
--- NOTE | 2016-10-19 14:45 | NUR ---
PT EXTUBATED AT THIS TIME. TOLERATED WELL.
--- NOTE | 2016-10-19 14:46 | NUR ---
RESTRAINTS REMOVED AT THIS TIME.
--- NOTE | 2016-10-19 14:49 | NUR ---
Follow-up Nutrition Assessment Dx:Acute respiratory failure with sepsis, non-stemi Labs: (10/19) K:2.8L, BH, BUN:29H, Ca:8.4L, H/H:8.2/25L, Ammonia:25 Meds: Colace, Humulin, KCL, Lactulose, Oscal, Pepcid, NS IV, Theragran, Zofran. TF order: Nutren Pulmonary @45ml/hr via OGT with ProSource TID TF intake: (10/18) 333ml (10/19) 455ml I/O: (10/19) 2803/1475(+1328ml), (10/18) 1852/1975(-123ml) Residuals: (10/19) 5ml Weights: (10/18)68kg (10/19)69.6kg Skin: intact Edema: scleral edema Last BM: 10/19, flexiseal in place, pt on lactulose. Pt admitted with acute respiratory failure secondary to possible aspiration pneumonia vs pleural effusion vs CVA, possible severe sepsis, likley secondary to aspiration penumonia per doctor's notes. Per doctor's progress note 10/19, pt had increase in blood pressure and agitation overnight possibly due to pain so morphine was given which lowered the blood pressure and pain. Pt had CPAP trial yesterday (10/18) and tolerated. Per bed huddle this morning, pt will have another CPAP trial today. During visit, observed pt +intubated, sedated, +ETT and OGT in place. TF running as ordered. Per RN, they haven't started CPAP trials for today. Pt is tolerating TF with minimal residuals. Estimated Nutritional Needs unchanged from prior assessment:CBW:150#, 68kg Energy: 1675kcal/day (PSU for ventilator support) Protein: 102-136g/day (1.5-2.0gm/kg for acute respiratory failure, sepsis) Fluid: 1700ml/day (25ml/kg for geriatric maintenance) or per doctor Nutrition Diagnosis 1. Increased nutritional (energy, protein) needs related to increase metabolic demands as evidenced by pt with possible severe sepsis, elevated WBC 11.8, lactic acid 4.4 (improving) Intervention 1. If unable to extubate, recommend continue with Nutren Pulmonary at 45ml/hr, with free water flush 100ml q6hr and Prosource TID, provides 1800kcal (107% of kcal goal) and 118gm of pro (100% pro goal), 1245ml free water daily 2. If able to extubate, consider bedside swallow evaluation or swallow evaluation per Speech Therapist to determine appropriate diet textures. 3. If able to extubate, consider CCHO diet with diet textures per Speech Therapist. Monitor/Evaluate Previous goal: NPO<5-7days; diet advancement (not met) Goal: TF intakes to meet at least 80% est needs with tolerance, NPO<5-7days, diet advancement Monitor: TF tolerance, NPO status, Labs(ammonia, BG), GI function F/U in 2-3 days as high risk:10/21-
--- NOTE | 2016-10-19 14:53 | NUR ---
1. If unable to extubate, recommend continue with Nutren Pulmonary at 45ml/hr, with free water flush 100ml q6hr and Prosource TID, provides 1800kcal (107% of kcal goal) and 118gm of pro (100% pro goal), 1245ml free water daily 2. If able to extubate, consider bedside swallow evaluation or swallow evaluation per Speech Therapist to determine appropriate diet textures. 3. If able to extubate, consider CCHO diet with diet textures per Speech Therapist.
--- NOTE | 2016-10-19 15:30 | NUR ---
PT REASSESSED AT THIS TIME. BREATHING EQUAL AND UNLABORED ON 2.5LPM VIA NC. PT ABLE TO FOLLOW COMMANDS AT THIS TIME. PT DENIES PAIN AND DISCOMFORT AT THIS TIME. WILL CONTINUE TO MONITOR.
--- NOTE | 2016-10-19 15:56 | NUR ---
FULL BED BATH AND LINEN CHANGE PROVIDED AT THIS TIME.
--- NOTE | 2016-10-19 17:31 | NUR ---
DR CURRY AT BEDSIDE AT THIS TIME. UPDATES PROVIDED. MADE AWARE THAT CVP 3
--- NOTE | 2016-10-19 20:31 | NUR ---
RECEIVED AWAKE ORIENTED TO SELF BUT NOT TO PLACE AND TIME,SLOW SPEECH ANSWERS APROPRIATELY.C/O PAIN ON RIGHT LEG WITH PAIN SCALE OF 9/10, MADE AWARE MEDICATED WITH MORPHINE 2 MG IVP PT COMMENTED HE NEEDS MORE.CARDIAC SCOPE SHOWS SR WITH HR 92 NO ECTOPIES.RIGHT IJ TLC INTACT WITH IVF D51/2NS AT 50 ML/H AND CVP MONITORING WITH -1 READING FOB CALIBRATED PER PROTOCOL.ABDOMEN SOFT HYPERACTIVE WITH FLEXISEAL DRAINING DARK GREEN LIQUID STOOL LEAKING PM FULL BATH AND COMPLETE LINEN CHANGE DONE.ROGERS TO GRAVITY DRAINAGE BAG.REPOSITIONED WITH PILLOW SUPPORT ON BACK AND BILATERAL HEELS OFFLOADED NOTED RIGHT FOOT DROP.BED ON LOW POSITION AND CALL LIGHT WITHIN REACH.
--- NOTE | 2016-10-19 23:00 | NUR ---
CALLING OUT NURSE C/O SHOULDER PAIN THIS TIME WITH PAIN SCALE OF 9/10.MEDICATED WITH MORPHINE 2 MG IV AND REPOSITIONED FOR COMFORT.
--- NOTE | 2016-10-19 23:24 | NUR ---
PT ASLEEP EASILY AROUSED AND WITH SLURRED SPEECH.SCOPE SHOWS SR HR 79.ON 2L/MIN O2 WITH SAT 100% NO RESPIRATORY DIFFICULTY NOTED.RIGHT IJ TLC INTACT WITH IVF AT 50 ML/H INFUSING WELL.FLEXISEAL AND ROGERS INPLACE AND DRAINING.CALL LIGHT WITHIN REACH AND BED ON LOW POSITION.PT REPOSITIONED WITH PILLOW SUPPORT ON BACK.
[2016-10-20 04:00] VITALS: BP 135/84
--- NOTE | 2016-10-20 04:00 | NUR ---
REMAINS ASLEEP MOVING AND REPOSITIONING SELF.REMAINS ON ROOM AIR WITH O2 SAT 100% RR 14.STILL ST WITH NO ECTOPIES HR 122.RIGHT IJ INTACT WITH ALL PORTS PATENT.LATEST BS 307 RISS 12 UNITS GIVEN SQ.BED ON LOW POSITION WITH SIDERAILS UP,CALL LIGHT WITHIN REACH.
[2016-10-20 04:23] LABS: BASOPHIL % 0.5 % (0-2); PLATELET COUNT 132 x10^3mcL (130-400)
[2016-10-20 04:30] LABS: RED CELL DISTRIBUTION WIDTH 15.1 % (11.5-14.5)
[2016-10-20 04:37] LABS: CALCIUM 8.2 mg/dL (8.5-10.1); CARBON DIOXIDE 27.8 mmol/L (21-32); CHLORIDE SERUM 105 mmol/L (98-107); CREATININE SERUM 0.6 mg/dL (0.7-1.3); GFR1 > 60 mL/min; GLUCOSE SERUM 127 mg/dL (74-106); MAGNESIUM 1.5 mg/dL (1.8-2.4); PHOSPHOROUS 3.1 mg/dL (2.5-4.9); SODIUM SERUM 139 mmol/L (136-145)
[2016-10-20 04:38] LABS: ALBUMIN 2.6 g/dL (3.4-5.0)
[2016-10-20 04:39] LABS: POTASSIUM SERUM 2.4 mmol/L (3.5-5.1)
--- NOTE | 2016-10-20 04:39 | NUR ---
PT C/O PAIN 30 MIN AFTER GIVING MORPHINE STATED YOU DID NOT GIVE IT.LETHARGIC AND WITH SLURRED SPEECH.RIGHT IJ TLC INTACT ALL PORTS PATENT.FOEY AND FLEXISEAL DRAINING.BED ON LOW POSITION AND CALL LIGHT WITHIN REACH.NPO MAINTAINED ORDERED FOR SWALLOW EVAL THIS AM.
--- NOTE | 2016-10-20 06:31 | NUR ---
K 2.4 K-RIDER 20 MEQ STARTED ORDERED.
--- NOTE | 2016-10-20 07:05 | NUR ---
REPORT RECEIVED AT THIS TIME. ALL QUESTIONS ANSWERED, ALL CONCERNS ADDRESSED.
--- NOTE | 2016-10-20 07:10 | NUR ---
DR MARADIAGA AT BEDSIDE AT THIS TIME. UPDATES PROVIDED. NEW ORDERS RECEIVED. WILL DISCUSS PT EVAL, BEDSIDE SWALLOW SCREEN AND TRANSFER WITH CARE TEAM.
--- NOTE | 2016-10-20 07:14 | NUR ---
REPORT GIVEN TO DI MITTAL.
[2016-10-20 07:30] VITALS: BP 151/86
--- NOTE | 2016-10-20 07:30 | NUR ---
PT ASSESSED AT THIS TIME. PT LAYING IN BED RESTING COMFORTABLY AT THIS TIME. ARSLAN CUTE SIGNS OF DISTRESS AND NO SIGN OF ACUTE CHANGE. PT BREATHING EQUAL AND UNLABORED AT THIS TIME. FLEXISEAL AND ROGERS CATHETER DRAINING WELL. PT HAS POTASSIUM INFUSING AT THIS TIME. WILL CONTINUE TO MONITOR.
--- NOTE | 2016-10-20 09:40 | NUR ---
DR GARCIA AND RESIDENTS ROUNDING AT THIS TIME. UPDATES PROVIDED. NEW ORDERS RECEIVED.
[2016-10-20 11:00] VITALS: BP 143/92
--- NOTE | 2016-10-20 11:00 | NUR ---
PT REASSESSED AT THIS TIME. NO ACUTE CHANGES NOTED IN PT'S STATUS AT THIS TIME. PT BREATHING EQUAL AND UNLABORED ON ROOM AIR. ROGERS CATHETER AND FLEXISEAL DRAINING WELL. WILL CONTINUE TO MONITOR.
--- NOTE | 2016-10-20 11:15 | NUR ---
FULL BEDSIDE SWALLOW SCREEN PERFORMED AT THIS TIME. PT ABLE TO TOLERATE ALL CONSISTENCIES. DR KING MADE AWARE. DIET TO BE ORDERED.
--- NOTE | 2016-10-20 15:02 | NUR ---
PHYSICAL THERAPY AT BEDSIDE AT THIS TIME TO ASSESS PT.
--- NOTE | 2016-10-20 15:35 | NUR ---
SPEECH THERAPY ON UNIT FOR SWALLOW EVAL. PT HAS TONGUE "TREMOR" PER ST AND IS TO REMAIN ON PUREE DIET WITH THIN LIQUIDS.
[2016-10-20 15:45] VITALS: BP 150/97
--- NOTE | 2016-10-20 15:45 | NUR ---
PT REASSESSED AT THIS TIME. PT LAYING IN BED RESTING COMFORTABLY, NO ACUTE SIGN OF DISTRESS NOTED. PT BREATHING EQUAL AND UNLABORED. NO ACUTE CHANGES NOTED IN STATUS. WILL CONTINUE TO MONITOR THROUGHOUT SHIFT.
--- NOTE | 2016-10-20 15:55 | NUR ---
* ST NOTE * Pt seen at bedside after receiving clearance from nsg. Bedside dysphagia and oral mechanism exams completed. See evaluation report for further details. Pt tolerating 1/1 alternating PO trials of regular solid saltine crackers w/out s/s of aspiration but demonstrating and verbalizing difficulty masticating regular solid textures. Pt refusing further trials of regular or M/S textures despite maximal cueing and education provided by clinician to establish least restrictive PO diet consistency. Pt thus accepting and tolerating 4/4 alternating PO trials of puree apple sauce 4-5 CCs at a time via a spoon, as well as 4/4 alternating PO trials of thin liquid apple juice via a straw w/out s/s of aspiration, exhibiting clear voicing w/out wet or gargly vocal quality. Pt and caregivers/nsg education completed regarding safe swallow compensatory strategies pt and caregivers/nsg could utilize to aid with swallow function as well as to clear oral cavity of any residue/pocketed food, with pt and caregivers/nsg verbalizing understanding and agreement with clinician's recommendations. Although pt tolerating 1/1 PO trials of regular solids with thin liquids, pt presents with lingual tremors, thus placing pt at high risk for aspiration. Thus, it is recommended pt's PO diet consistency be modified to puree textures with thin liquids for all meals, requiring assistance with feeding and close supervision by caregivers/staff during PO intake to assure STRICT aspiration precautions are in place. Pt and caregivers/nsg education also completed regarding results of evaluation; benefits of abiding by aspiration precautions and recommended PO diet consistency; and prognosis for improvement; with pt and caregivers/nsg verbalizing understanding and agreement once again. Recommend: - PO diet consistency of Puree textures with Thin liquids for all meals - CLOSE supervision during PO intake by caregivers/staff/family to assure STRICT aspiration precautions are in place secondary to pt's lingual tremors and pt not preferring to wear upper or lower dentures during PO intake - Suction PRN - Pt requires total assistance with feeding No further ST follow up recommended at this time. G8996 CK G8997 CJ G8998 CJ NOMS Level 3 Time In/Out 15:20 - 16:05
--- NOTE | 2016-10-20 16:45 | NUR ---
CENTRAL LINE DRESSING CHANGED AT THIS TIME. PT TOLERATED WELL.
--- NOTE | 2016-10-20 16:50 | NUR ---
MARIANN WAREHOUSE SELECTOR AT BEDSIDE AT THIS TIME TO ASSESS PT
--- NOTE | 2016-10-20 18:00 | NUR ---
DR YAÑEZ IN TO SEE PT AT THIS TIME. UPDATES PROVIDED. NO NEW ORDERS RECEIVED
--- NOTE | 2016-10-20 19:05 | NUR ---
RECEIVED REPORT FROM DAXA RN, UPDATES PROVIDED, WILL ASSUME TOTAL CARE.
[2016-10-20 19:15] VITALS: BP 127/97
--- NOTE | 2016-10-20 19:15 | NUR ---
RECEIVED PATIENT AWAKE AND ORIENTED TO PERSON AND PLACE. PT ABLE TO FOLLOW COMMANDS. PT IS SLOW TO RESPOND. SPEECH IS UNCLEAR AT TIMES. PUPILS 3MM BILAT WITH BRISK REACTION TO LIGHT. NO DRAINAGE FROM EENT. TRACHEA MIDLINE. RIJ IN PLACE AND SECURED, CDI, AND INFUSING D5 1/2 NS @ 50ML/HR. PT BREATHING EQUAL AND UNLABORED VIA ROOM AIR. PT DENIES SOB. NO SIGN OF DISTRESS. LUNGS CLEAR TO BUL AND DIM TO BLL. S1, S2 AUSCULTATED. CHEST WALL STABLE. PT DENIES CP AT THIS TIME. SKIN IS DRY, WTT. SKIN COLOR HAS DISCOLORATION DUE TO VITILIGO. PT HAS MODERATE PERIPHERAL PULSES TO BUE AND BLE. TRACE EDEMA NOTED TO BILAT HANDS. CAP REFILL <3 SECONDS. PT HAS GENERALIZED WEAKNESS. PT HAS LIMITED ROM X 4 EXTREMITIES. R FOOT DROP PRESENT. NO N/V NOTED AT THIS TIME. PT'S ABD SOFT, ROUND, AND NONTENDER TO PALPATION. BOWEL SOUNDS ACTIVE X4Q. PT HAS FLEXISEAL IN PLACE DRAINING DARK GREEN LIQUID STOOL TO GRAVITY. PT HAS ROGERS CATHETER IN PLACE AND SECURED, DRAINING YELLOW URINE TO GRAVITY. NO SCROTAL EDEMA NOTED, NO PENILE DISCHARGE. PT'S SKIN DRY, WTT. SKIN DISCOLORATION NOTED DUE TO VITILIGO. HOB ELEVATED 30 DEGREES, BED IN LOWEST POSITION, BED RAILS X 3, CALL LIGHT WITHIN REACH, WILL CONTINUE TO MONITOR.
--- NOTE | 2016-10-20 19:46 | NUR ---
RT AT BEDSIDE.
[2016-10-20 23:11] VITALS: BP 137/97
--- NOTE | 2016-10-20 23:19 | NUR ---
PT RESTING AND WATCHING TELEVISION. VITAL SIGNS STABLE. NO S/S OF DISTRESS NOTED. WILL CONTINUE TO MONITOR
[2016-10-21 03:22] VITALS: BP 136/96
--- NOTE | 2016-10-21 03:38 | NUR ---
PT RESTING COMFORTABLY, VITAL SIGNS STABLE, NO ACUTE CHANGES, NO S/S OF DISTRESS NOTED. WILL CONTINUE TO MONITOR.
--- NOTE | 2016-10-21 05:15 | NUR ---
DR CURRY AT BEDSIDE FOR ASSESSMENT, UPDATES PROVIDED, ALL QUESTIONS AND CONCERNS ADDRESSED, NO NEW ORDERS RECEIVED. WILL CONTINUE TO MONITOR.
--- NOTE | 2016-10-21 05:30 | NUR ---
DR TOLEDO AT BEDSIDE FOR ASSESSMENT, UPDATES PROVIDED, ALL QUESTIONS AND CONCERNS ADDRESSED, NO NEW ORDERS RECEIVED. WILL CONTINUE TO MONITOR.
[2016-10-21 05:47] LABS: BASOPHIL % 0.4 % (0-2); PLATELET COUNT 170 x10^3mcL (130-400)
[2016-10-21 05:50] LABS: RED CELL DISTRIBUTION WIDTH 15.4 % (11.5-14.5)
[2016-10-21 06:19] LABS: CALCIUM 8.1 mg/dL (8.5-10.1); CARBON DIOXIDE 27.3 mmol/L (21-32); CHLORIDE SERUM 103 mmol/L (98-107); CREATININE SERUM 0.6 mg/dL (0.7-1.3); GFR1 > 60 mL/min; GLUCOSE SERUM 112 mg/dL (74-106); MAGNESIUM 1.8 mg/dL (1.8-2.4); SODIUM SERUM 138 mmol/L (136-145)
[2016-10-21 06:21] LABS: POTASSIUM SERUM 2.6 mmol/L (3.5-5.1)
[2016-10-21 07:52] VITALS: BP 147/100
--- NOTE | 2016-10-21 08:00 | NUR ---
PT IS AWAKE AND ALERT, ORIENTED TO PERSON AND PLACE. PT HAS SPEECH APPROPRIATE FOR AGE. PT IS QUICKLY FORGETFUL. PERRLA, 2MM BRISK. FOLLOWS COMMANDS. EENT FREE OF DISCHARGE. PT IS BREATHING EVEN AND UNLABORED ON ROOM AIR. LUNG SOUNDS ARE CLEAR TO BUL, DIMINISHED TO BASES. S1 S2 HEART SOUNDS AUSCULTATED. SINUS TACH. PULSES ARE MODERATE X4. CAP REFILL < 3 S. SKIN IS WARM AND DRY. VITALIGO NOTED THROUGHOUT. R IJ CVC INTACT, PORTS PATENT, DRESSING CDI. D5-1/2NS INFUSING @ 50 CC/HR. TRACE EDEMA TO BILATERAL HANDS. ABD IS SOFT AND FLAT. BOWEL SOUNDS ACTIVE X4Q. FLEXISEAL INTACT AND IN PLACE, DRAINING WELL VIA GRAVITY. ROGERS INTACT AND DRAINING VIA GRAVITY. URINE IS YELLOW, FAIR OUTPUT. PT C/O 9/10 SHARP SHOULDER PAIN, REPOSITIONED AND UTILIZED RELAXATION TECHNIQUE. HOB ELEVATED, BED LOW, SIDE RAILS UP X2, CALL LIGHT IN REACH. WILL CONTINUE TO MONITOR.
--- NOTE | 2016-10-21 08:30 | NUR ---
PAIN INTERVENTIONS OF REPOSITIONING AND RELAXATION APPEARS EFFECTIVE. PT RESTING COMFORTABLY AT THIS TIME. NO C/O PAIN AT THIS TIME.
--- NOTE | 2016-10-21 08:43 | NUR ---
DR MARADIAGA AT BEDSIDE TO ASSESS PT. UPDATED ON PT STATUS. ORDERS RECEIVED TO CHANGE IV FLUIDS TO D5-1/2NS W/ 20 MEQ POTASSIUM, HAVE POTASSIUM REPLACED, AND FOR A STOOL WBC TEST.
--- NOTE | 2016-10-21 08:50 | NUR ---
DR MARADIAGA AT BEDSIDE TO ASSESS PT. UPDATED ON PT STATUS. RECOMENDATION RECEIVED TO CHANGE IV FLUIDS TO D5-1/2NS W/ 20 MEQ POTASSIUM, HAVE POTASSIUM REPLACED, AND FOR A STOOL WBC TEST.
--- NOTE | 2016-10-21 09:16 | NUR ---
PATIENT ROUNDS WITH DR. GARCIA AND RESIDENTS. CHARGE NURSE AND PRIMARY NURSE AT BEDSIDE. UPDATES PROVIDED AND POC DISCUSSED. WILL CONTINUE TO MONITOR.
[2016-10-21 11:52] VITALS: BP 132/92
[2016-10-21 15:33] VITALS: BP 126/83
--- NOTE | 2016-10-21 15:57 | NUR ---
Follow-up Nutrition Assessment- [facility] Dx:Acute respiratory failure Labs: (10/21) K:2.6L,m B, Cr:0.6L, Ca:8.1L H/H:9.1/27L (10/16) A1c:6.4H, Meds: Coalce, D5NS IV, Humulin, KCL, Oscal, Pepcid, Theragran, Zofran Diet: CCHO pureed Weights: (10/17) 147#, (10/19) 153# (10/20) 153# (10/21)149# Skin: intact Edema: trace to BUE Last BM: flexiseal intact and draining well. Pt was admitted with Acute respiratory failure secondary to poss aspiration pneumonia vs pleural effusion vs CVAposs Severe Sepsis, likely secondary to aspiration PNA. Per bed huddle this morning, pt is s/p extubation on 10/19. Pt is stable to go upstairs to med surg/telemetry and will discahrge to SNF for physical therapy tomorrow. Per progress note 10/21, pt desires to go home after hospital rehab and is c/o pain in lower legs. Per RN, pt with no GI issues and poor PO intake 10% for breakfast and lunch. Pt expected to discharge to [facility] tonight. Estimated Nutritional Needs based on admit wt 68kg Energy: 1700-2040kcal/day (25-30kcal/kg for geriatric maintenance) Protein: 68g/day (1g/kg for geriatric maintenance) Fluid: 1700-2040ml/day (1ml/kcal) or per doctor Nutrition Diagnosis 1. Increased nutritional (energy, protein) needs related to increased metabolic demands as evidenced by pt with possible severe sepsis, elevated WBC 11.8, lactic acid 4.4. (resolved, WBC: WNL, lactic acid: 4.4H, trending down) Intervention 1. Recommend continue with CCHO pureed diet with Boost Glucose Control TID (provides 750kcal and 42g pro) Monitor/Evaluate Previous goal: NPO<5-7 days, diet advancement (met) Goal: PO intake at least 75% of estimated needs from meals and supplements Monitor: PO intake, Labs, GI function F/U in 3-5 days as moderate risk:10/24-
--- NOTE | 2016-10-21 15:58 | NUR ---
1. Recommend adding Boost Glucose Control TID (provides 750kcal and 42g pro) to [facility] pureed diet.
--- NOTE | 2016-10-21 16:01 | NUR ---
RECEIVED REPORT FROM SCARLETT SEVILLA, ALL QUESTIONS AND CONCERNS ADDRESSED AT THIS TIME, WILL ASSUME ALL CARE.
[2016-10-21] MEDS ORDERED: CLINDAMYCIN HC300 MG PO (16:22)
[2016-10-21] MEDS ORDERED: LEVAQUIN750 MG PO (16:22)
[2016-10-21] MEDS ORDERED: LAC PO (16:23)
--- NOTE | 2016-10-21 18:41 | NUR ---
REPORT GIVEN TO [facility] TO LAURA SEVILLA, ALL QUESTIONS AND CONCERNS ADDRESSED AT THIS TIME, WILL ENDORSE ALL CARE UPON ARRIVAL.
--- NOTE | 2016-10-21 19:10 | NUR ---
RECEIVED REPORT FROM DI EDDY, WILL ENDORSE CARE.
[2016-10-21 19:48] VITALS: BP 122/87
[2016-10-21 20:21] VITALS: BP 122/87
--- NOTE | 2016-10-21 20:59 | NUR ---
TRANSPORT ARRIVED, ALL COPIES OF LABS, HNP, MEDICAL RECORDS D/C INSTRUCTIONS GIVEN, RIJ D/C, F/C, WALTER, ANA'D WELL. ENDORSE CARE TO TRANSPORT
== END 2016-10-21 20:55 | DRG 871 ==
LOC: ED 00:32 → IC 02:38
PROVIDERS: Specialist; ADMIT Family Medicine
PROC: 5A1945Z Respiratory Ventilation, 24-96 Consecutive Hours (ICD-10-PCS; principal; 2016-10-16)
PROC: 0BH17EZ Insertion of Endotracheal Airway into Trachea, Via Natural or Artificial Opening (ICD-10-PCS; 2016-10-16)
PROC: 05HM33Z Insertion of Infusion Device into Right Internal Jugular Vein, Percutaneous Approach (ICD-10-PCS; 2016-10-16)
PROC: B543ZZA Ultrasonography of Right Jugular Veins, Guidance (ICD-10-PCS; 2016-10-16)
DX: A41.9 Sepsis, unspecified organism (principal); J69.0 Pneumonitis due to inhalation of food and vomit; J96.01 Acute respiratory failure with hypoxia; N17.0 Acute kidney failure with tubular necrosis; E43 Unspecified severe protein-calorie malnutrition; K85.90 Acute pancreatitis without necrosis or infection, unspecified; R65.21 Severe sepsis with septic shock; E87.1 Hypo-osmolality and hyponatremia; D68.69 Other thrombophilia; E11.65 Type 2 diabetes mellitus with hyperglycemia; E11.42 Type 2 diabetes mellitus with diabetic polyneuropathy; E87.6 Hypokalemia; E83.51 Hypocalcemia; K72.90 Hepatic failure, unspecified without coma; I36.1 Nonrheumatic tricuspid (valve) insufficiency; J32.2 Chronic ethmoidal sinusitis; E83.39 Other disorders of phosphorus metabolism; E80.6 Other disorders of bilirubin metabolism; B18.2 Chronic viral hepatitis C; E03.9 Hypothyroidism, unspecified; I10 Essential (primary) hypertension; N40.0 Benign prostatic hyperplasia without lower urinary tract symptoms; Z68.20 Body mass index [BMI] 20.0-20.9, adult; Z87.891 Personal history of nicotine dependence; Z86.718 Personal history of other venous thrombosis and embolism; M62.50 Muscle wasting and atrophy, not elsewhere classified, unspecified site; Z79.01 Long term (current) use of anticoagulants
CPT/HCPCS: 31500; 36556; 36600; 82962; 83880; 84439; 92610; 97110-GP; 97530-GP; A4628; G0480; J0330; J1642; J1644; J1815; J1956; J2250; J2270; J2543; J2704; J3010; J3475; J3480; J3490; J7030; J7040; J7050; Q0092

== ENCOUNTER 2016-11-27 22:22 | Inpatient (IN) | payer OTHER, MEDICAID ==
[~2016-11-27] VITALS: Ht 170.2 cm; Wt 66.7 kg
[~2016-11-27 22:22] MED LIST changes: +CLINDAMYCIN HC300 MG PO; +CLONIDINE HCL0.1 MG; +COUMADIN1 MG; +COUMADIN6 MG; +LEVAQUIN750 MG PO; +LOPERAMIDE HCL2 M1; +MORPHINE SULFAT60 MG; +PHOSLO667 MG; +SENNA8.6 M2; +TRA100
[2016-11-27 23:21] LABS: BASOPHIL % 1.3 % (0-2); PLATELET COUNT 222 x10^3mcL (130-400)
[2016-11-27 23:22] LABS: RED CELL DISTRIBUTION WIDTH 16.6 % (11.5-14.5)
[2016-11-27 23:25] LABS: CALCIUM 8.3 mg/dL (8.5-10.1); CARBON DIOXIDE 22.7 mmol/L (21-32); CHLORIDE SERUM 109 mmol/L (98-107); CREATININE SERUM 0.6 mg/dL (0.7-1.3); GFR1 > 60 mL/min; GLUCOSE SERUM 118 mg/dL (74-106); POTASSIUM SERUM 3.5 mmol/L (3.5-5.1); SODIUM SERUM 142 mmol/L (136-145)
[2016-11-27 23:37] LABS: ALKALINE PHOSPHATASE 57 U/L (46-116); ALT/SGPT 59 U/L (16-63); AST/SGOT 73 U/L (15-37); BILIRUBIN TOTAL 0.3 mg/dL (0.20-1.00); TOTAL PROTEIN, SERUM 6.7 g/dL (6.4-8.2)
[2016-11-27 23:38] LABS: ALBUMIN 3.1 g/dL (3.4-5.0)
[2016-11-28] VITALS (7 sets, daily range): BP systolic 74–133; BP diastolic 45–75
[2016-11-28 02:41] LABS: CHOLESTEROL/HDL RATIO 4.3; MAGNESIUM 2.1 mg/dL (1.8-2.4); PHOSPHOROUS 3.7 mg/dL (2.5-4.9)
[2016-11-28 02:47] LABS: T3 TOTAL 1.06 ng/mL
[2016-11-28 02:52] LABS: FREE T4 1.32 ng/dL (0.76-1.46); FREE THYROXINE INDEX 3.9 ug/dL (1.4-4.5); T4(THYROXINE) 13.1 ug/dL (4.7-13.3)
[2016-11-28 08:00] LABS: microscopic required? NO
[2016-11-28 08:34] LABS: UA SPECIFIC GRAVITY 1.015 (1.005-1.035); urine erythrocyte NEGATIVE (NEGATIVE)
[2016-11-28 08:39] LABS: CALCIUM 8.2 mg/dL (8.5-10.1); CARBON DIOXIDE 24.8 mmol/L (21-32); CHLORIDE SERUM 109 mmol/L (98-107); CREATININE SERUM 0.7 mg/dL (0.7-1.3); GFR1 > 60 mL/min; GLUCOSE SERUM 102 mg/dL (74-106); POTASSIUM SERUM 3.5 mmol/L (3.5-5.1); SODIUM SERUM 143 mmol/L (136-145)
[2016-11-28 09:15] LABS: AMPHETAMINE QUAL UR NONE DETECTED (NEG <=1000)
[2016-11-28 19:15] LABS: RED BLOOD CELLS 3.59 M/mm3 (4.52-5.90)
[2016-11-28 19:46] LABS: IRON 77 ug/dL (65-170); TOTAL IRON BINDING CAPACITY 318 ug/dL (250-450)
[2016-11-29 05:59] VITALS: BP 95/60
[2016-11-29 06:23] LABS: BASOPHIL % 0.8 % (0-2); PLATELET COUNT 214 x10^3mcL (130-400)
[2016-11-29 06:24] LABS: RED CELL DISTRIBUTION WIDTH 16.3 % (11.5-14.5)
[2016-11-29 06:48] LABS: CALCIUM 8.1 mg/dL (8.5-10.1); CARBON DIOXIDE 26.3 mmol/L (21-32); CHLORIDE SERUM 109 mmol/L (98-107); CREATININE SERUM 0.8 mg/dL (0.7-1.3); GFR1 > 60 mL/min; GLUCOSE SERUM 89 mg/dL (74-106); PHOSPHOROUS 5.3 mg/dL (2.5-4.9); POTASSIUM SERUM 4.3 mmol/L (3.5-5.1); SODIUM SERUM 143 mmol/L (136-145)
[2016-11-29 09:44] VITALS: BP 106/75
[2016-11-29 14:49] VITALS: BP 145/99
[2016-11-29 21:36] VITALS: BP 125/89
[2016-11-30 06:10] VITALS: BP 122/65
[2016-11-30 06:48] LABS: CALCIUM 7.8 mg/dL (8.5-10.1); CARBON DIOXIDE 25.9 mmol/L (21-32); CHLORIDE SERUM 110 mmol/L (98-107); CREATININE SERUM 0.7 mg/dL (0.7-1.3); GFR1 > 60 mL/min; GLUCOSE SERUM 90 mg/dL (74-106); POTASSIUM SERUM 4.5 mmol/L (3.5-5.1); SODIUM SERUM 141 mmol/L (136-145)
[2016-11-30 06:50] LABS: BASOPHIL % 0.7 % (0-2); PLATELET COUNT 191 x10^3mcL (130-400)
[2016-11-30 06:52] LABS: RED CELL DISTRIBUTION WIDTH 16.2 % (11.5-14.5)
[2016-11-30 08:43] VITALS: BP 111/73
[2016-11-30] MEDS ORDERED: FLE10 PO (14:05)
[2016-11-30] MEDS ORDERED: LIPI10 PO (14:08)
[2016-11-30] MEDS ORDERED: ECO81 PO (14:09)
[2016-11-30] MEDS ORDERED: SERTRALINE50 M1 PO (14:10)
[2016-11-30] MEDS ORDERED: HIBICLENS118 ML TOP (14:11)
[2016-11-30 14:48] VITALS: BP 111/73
[2016-11-30 17:34] VITALS: BP 134/88
== END 2016-11-30 18:02 | DRG 205 ==
LOC: ED 22:22 → DU 11-28 00:56 → MU 11-28 00:56 → DU 11-28 02:47 → MU 11-30 06:34
PROVIDERS: Emergency Medicine; Family Medicine; ADMIT Family Medicine Sports Medicine
DX: M94.0 Chondrocostal junction syndrome [Tietze] (principal); I50.43 Acute on chronic combined systolic (congestive) and diastolic (congestive) heart failure; E44.0 Moderate protein-calorie malnutrition; B18.2 Chronic viral hepatitis C; E87.8 Other disorders of electrolyte and fluid balance, not elsewhere classified; F43.23 Adjustment disorder with mixed anxiety and depressed mood; N40.0 Benign prostatic hyperplasia without lower urinary tract symptoms; G62.9 Polyneuropathy, unspecified; M25.511 Pain in right shoulder; D64.9 Anemia, unspecified; E03.9 Hypothyroidism, unspecified; E78.5 Hyperlipidemia, unspecified; Z74.01 Bed confinement status; Z68.23 Body mass index [BMI] 23.0-23.9, adult
CPT/HCPCS: 82962; 83880; 84439; 90658; 97110-GP; 97116-GP; 97530-GP; J0780; J1200; J1885; J2270; J3010; J7030; Q0092

== ENCOUNTER 2017-01-28 09:21 | Inpatient (IN) | payer OTHER, MEDICAID ==
[~2017-01-28] VITALS: Ht 167.6 cm; Wt 68.0 kg
[~2017-01-28 09:21] MED LIST changes: +FLE10 PO; +LIPI10 PO; +SERTRALINE50 M1 PO
[2017-01-28] MEDS ORDERED: COUMADIN1 MG PO (09:49)
[2017-01-28 10:20] LABS: PLATELET COUNT 289 x10^3mcL (130-400)
[2017-01-28 10:31] LABS: RED CELL DISTRIBUTION WIDTH 14.7 % (11.5-14.5)
[2017-01-28 10:32] LABS: microscopic required? NO
[2017-01-28 10:36] LABS: CK-MB 10.8 ng/mL (0-3.6)
[2017-01-28 10:47] LABS: BILIRUBIN TOTAL 0.8 mg/dL (0.20-1.00); CALCIUM 9.6 mg/dL (8.5-10.1); CARBON DIOXIDE 18.4 mmol/L (21-32); CREATININE SERUM 2.2 mg/dL (0.7-1.3); TOTAL PROTEIN, SERUM 7.2 g/dL (6.4-8.2)
[2017-01-28 10:52] LABS: ALBUMIN 2.6 g/dL (3.4-5.0)
[2017-01-28 10:53] LABS: urine erythrocyte NEGATIVE (NEGATIVE)
[2017-01-28 10:56] LABS: POTASSIUM SERUM 6.3 mmol/L (3.5-5.1)
[2017-01-28 11:29] LABS: BAND NEUTROPHIL 44 % (0-10); SEGMENTED NEUTROPHILS 9 % (37-75)
[2017-01-28 11:30] LABS: ATYPICAL LYMPH 5 %; METAMYELOCTE 15 % (0-2); MONOCYTE 17 % (0-7); MYELOCYTE 2 % (0-2); PLATELET MORPHOLOGY PLATELETS NORMAL; rbc morphology (normal/abnorm) NORMAL (NORMAL)
[2017-01-28 14:37] LABS: PHOSPHOROUS 7.7 mg/dL (2.5-4.9)
[2017-01-28 14:39] LABS: CHOLESTEROL/HDL RATIO 4.1
[2017-01-28 14:41] LABS: MAGNESIUM 4.3 mg/dL (1.8-2.4)
[2017-01-28 14:44] LABS: T3 TOTAL 0.63 ng/mL
[2017-01-28 14:49] LABS: FREE T4 1.33 ng/dL (0.76-1.46); FREE THYROXINE INDEX 3.1 ug/dL (1.4-4.5); T4(THYROXINE) 10.4 ug/dL (4.7-13.3)
[2017-01-28 15:01] LABS: AMPHETAMINE QUAL UR NONE DETECTED (NEG <=1000)
[2017-01-28 15:47] VITALS: BP 152/83
[2017-01-28 19:38] VITALS: BP 124/39
[2017-01-28 19:40] VITALS: BP 93/61
[2017-01-28 23:07] VITALS: BP 93/61
[2017-01-29] VITALS (7 sets, daily range): BP systolic 90–116; BP diastolic 49–75; Ht 167.6 cm; Wt 68.0 kg
[2017-01-29 00:07] LABS: BASOPHIL % 0.2 % (0-2); PLATELET COUNT 261 x10^3mcL (130-400); RED CELL DISTRIBUTION WIDTH 14.3 % (11.5-14.5)
[2017-01-29 00:33] LABS: CALCIUM 7.9 mg/dL (8.5-10.1); CARBON DIOXIDE 19.9 mmol/L (21-32); CREATININE SERUM 1.7 mg/dL (0.7-1.3); POTASSIUM SERUM 4.8 mmol/L (3.5-5.1)
[2017-01-29 06:03] LABS: BASOPHIL % 0.2 % (0-2); PLATELET COUNT 243 x10^3mcL (130-400); RED CELL DISTRIBUTION WIDTH 14.5 % (11.5-14.5)
[2017-01-29 06:20] LABS: CALCIUM 7.9 mg/dL (8.5-10.1); CARBON DIOXIDE 20.2 mmol/L (21-32); CREATININE SERUM 1.5 mg/dL (0.7-1.3); MAGNESIUM 3.1 mg/dL (1.8-2.4); PHOSPHOROUS 4.8 mg/dL (2.5-4.9); POTASSIUM SERUM 4.3 mmol/L (3.5-5.1)
[2017-01-30] VITALS (10 sets, daily range): BP systolic 105–155; BP diastolic 64–97
[2017-01-30 05:54] LABS: PLATELET COUNT 140 x10^3mcL (130-400)
[2017-01-30 05:56] LABS: RED CELL DISTRIBUTION WIDTH 14.6 % (11.5-14.5)
[2017-01-30 06:09] LABS: CALCIUM 7.9 mg/dL (8.5-10.1); CARBON DIOXIDE 22.8 mmol/L (21-32); CHLORIDE SERUM 112 mmol/L (98-107); CREATININE SERUM 0.7 mg/dL (0.7-1.3); GFR1 > 60 mL/min; GLUCOSE SERUM 108 mg/dL (74-106); POTASSIUM SERUM 3.7 mmol/L (3.5-5.1); SODIUM SERUM 141 mmol/L (136-145)
[2017-01-30 09:18] LABS: BAND NEUTROPHIL 9 % (0-10); BASOPHIL 0 % (0-2); MONOCYTE 12 % (0-7); SEGMENTED NEUTROPHILS 68 % (37-75)
[2017-01-30 09:24] LABS: PLATELET MORPHOLOGY PLATELETS DECREASED; rbc morphology (normal/abnorm) ABNORMAL (NORMAL)
[2017-01-31 05:49] VITALS: BP 144/84
[2017-01-31 07:25] LABS: BASOPHIL % 0.7 % (0-2); PLATELET COUNT 156 x10^3mcL (130-400); RED CELL DISTRIBUTION WIDTH 14.1 % (11.5-14.5)
[2017-01-31 07:33] LABS: CALCIUM 7.7 mg/dL (8.5-10.1); CARBON DIOXIDE 25.3 mmol/L (21-32); CHLORIDE SERUM 110 mmol/L (98-107); CREATININE SERUM 0.5 mg/dL (0.7-1.3); GFR1 > 60 mL/min; GLUCOSE SERUM 99 mg/dL (74-106); POTASSIUM SERUM 3.2 mmol/L (3.5-5.1); SODIUM SERUM 142 mmol/L (136-145)
[2017-01-31 09:37] VITALS: BP 159/96
[2017-01-31 15:26] VITALS: BP 156/96
[2017-01-31 21:19] VITALS: BP 144/91
[2017-02-01 04:46] VITALS: BP 145/76
[2017-02-01 06:42] LABS: CALCIUM 7.7 mg/dL (8.5-10.1); CARBON DIOXIDE 26.7 mmol/L (21-32); CHLORIDE SERUM 106 mmol/L (98-107); CREATININE SERUM 0.5 mg/dL (0.7-1.3); GFR1 > 60 mL/min; GLUCOSE SERUM 85 mg/dL (74-106); POTASSIUM SERUM 3.1 mmol/L (3.5-5.1); SODIUM SERUM 140 mmol/L (136-145)
[2017-02-01 07:01] LABS: PLATELET COUNT 168 x10^3mcL (130-400)
[2017-02-01 07:11] LABS: BASOPHIL % 3.8 % (0-2)
[2017-02-01 08:38] VITALS: BP 132/72
[2017-02-01 08:57] VITALS: BP 142/87
[2017-02-01] MEDS ORDERED: LEVOFLOXACIN500 M1 IV (16:21)
[2017-02-01] MEDS ORDERED: LAC PO (16:22)
== END 2017-02-01 18:32 | DRG 871 ==
LOC: ED 09:21 → IC 14:02 → DU 01-30 16:08 → MU 01-31 06:24
PROVIDERS: Emergency Medicine; Family Medicine; ADMIT Family Medicine
PROC: 05HM33Z Insertion of Infusion Device into Right Internal Jugular Vein, Percutaneous Approach (ICD-10-PCS; principal; 2017-01-28)
PROC: B543ZZA Ultrasonography of Right Jugular Veins, Guidance (ICD-10-PCS; 2017-01-28)
DX: A41.9 Sepsis, unspecified organism (principal); J69.0 Pneumonitis due to inhalation of food and vomit; N17.0 Acute kidney failure with tubular necrosis; E43 Unspecified severe protein-calorie malnutrition; G92 Toxic encephalopathy; R65.21 Severe sepsis with septic shock; E87.1 Hypo-osmolality and hyponatremia; F11.20 Opioid dependence, uncomplicated; M62.82 Rhabdomyolysis; E87.2 Acidosis; D64.9 Anemia, unspecified; F32.9 Major depressive disorder, single episode, unspecified; F10.10 Alcohol abuse, uncomplicated; G62.89 Other specified polyneuropathies; E03.9 Hypothyroidism, unspecified; E83.39 Other disorders of phosphorus metabolism; E87.5 Hyperkalemia; B18.2 Chronic viral hepatitis C; N40.0 Benign prostatic hyperplasia without lower urinary tract symptoms; Z68.24 Body mass index [BMI] 24.0-24.9, adult; Z22.322 Carrier or suspected carrier of Methicillin resistant Staphylococcus aureus
CPT/HCPCS: 36556; 36600; 83880; 84439; 97110-GP; 97116-GP; 97530-GP; G0480; J0610; J1642; J1644; J1956; J2250; J2310; J2405; J2543; J3490; J7030; J7620; Q0092

== ENCOUNTER 2017-09-14 12:58 | Inpatient (IN) | payer OTHER, MEDICAID ==
[~2017-09-14] VITALS: Ht 172.7 cm; Wt 60.5 kg
[~2017-09-14 12:58] MED LIST changes: +COUMADIN1 MG PO; +LEVOFLOXACIN500 M1 IV
[2017-09-14 14:20] LABS: ALBUMIN 4.1 g/dL (3.4-5.0); ALKALINE PHOSPHATASE 42 U/L (46-116); ALT/SGPT 41 U/L (16-63); AST/SGOT 56 U/L (15-37); BILIRUBIN TOTAL 0.7 mg/dL (0.20-1.00); CALCIUM 8.3 mg/dL (8.5-10.1); CARBON DIOXIDE 20.6 mmol/L (21-32); CHLORIDE SERUM 97 mmol/L (98-107); CHOLESTEROL 160 mg/dL (<200); CREATININE SERUM 0.9 mg/dL (0.7-1.3); GFR1 > 60 mL/min; GLUCOSE SERUM 135 mg/dL (74-106); SODIUM SERUM 133 mmol/L (136-145)
[2017-09-14 14:21] LABS: PLATELET COUNT 228 x10^3mcL (130-400); RED CELL DISTRIBUTION WIDTH 12.4 % (11.5-14.5)
[2017-09-14 14:22] LABS: BASOPHIL % 2.4 % (0-2)
[2017-09-14 14:42] LABS: POTASSIUM SERUM 2.5 mmol/L (3.5-5.1); TOTAL PROTEIN, SERUM 8.3 g/dL (6.4-8.2)
[2017-09-14 17:24] VITALS: BP 127/90
[2017-09-14 18:12] LABS: microscopic required? YES; urine erythrocyte 1+ (NEGATIVE)
[2017-09-14 20:29] VITALS: BP 133/83
[2017-09-15 06:14] VITALS: BP 132/87
[2017-09-15 07:11] LABS: T3 TOTAL 0.52 ng/mL
[2017-09-15 07:15] LABS: CALCIUM 8.5 mg/dL (8.5-10.1); CARBON DIOXIDE 21.5 mmol/L (21-32); CHLORIDE SERUM 104 mmol/L (98-107); CREATININE SERUM 0.5 mg/dL (0.7-1.3); GFR1 > 60 mL/min; GLUCOSE SERUM 128 mg/dL (74-106); PHOSPHOROUS 2.2 mg/dL (2.5-4.9); POTASSIUM SERUM 3.3 mmol/L (3.5-5.1); SODIUM SERUM 137 mmol/L (136-145)
[2017-09-15 07:36] LABS: FREE T4 1.27 ng/dL (0.76-1.46); FREE THYROXINE INDEX 3.4 ug/dL (1.4-4.5); T4(THYROXINE) 10.5 ug/dL (4.7-13.3)
[2017-09-15 07:42] LABS: BASOPHIL % 0.5 % (0-2); PLATELET COUNT 162 x10^3mcL (130-400); RED CELL DISTRIBUTION WIDTH 13.7 % (11.5-14.5)
[2017-09-15 09:16] VITALS: BP 139/84
[2017-09-15 13:26] VITALS: BP 133/84
[2017-09-15 17:09] VITALS: BP 140/93
[2017-09-15 21:33] VITALS: BP 139/89
[2017-09-16 05:49] VITALS: BP 139/89
[2017-09-16 06:45] LABS: PLATELET COUNT 137 x10^3mcL (130-400); RED CELL DISTRIBUTION WIDTH 14.1 % (11.5-14.5)
[2017-09-16 06:54] LABS: CALCIUM 8.4 mg/dL (8.5-10.1); CARBON DIOXIDE 22.6 mmol/L (21-32); CHLORIDE SERUM 103 mmol/L (98-107); CREATININE SERUM 0.4 mg/dL (0.7-1.3); GFR1 > 60 mL/min; GLUCOSE SERUM 108 mg/dL (74-106); POTASSIUM SERUM 3.6 mmol/L (3.5-5.1); SODIUM SERUM 135 mmol/L (136-145)
[2017-09-16 07:08] LABS: BASOPHIL % 2.2 % (0-2)
[2017-09-16 08:00] VITALS: BP 128/84
[2017-09-16 09:11] VITALS: BP 130/75
[2017-09-16 12:11] VITALS: BP 130/75
== END 2017-09-16 15:13 | disposition home health service (06) | DRG 640 ==
LOC: ED 12:58 → DU 16:14
PROVIDERS: Emergency Medicine; Internal Medicine Pulmonary Disease
DX: E86.0 Dehydration (principal); G93.49 Other encephalopathy; N39.0 Urinary tract infection, site not specified; T40.2X1A Poisoning by other opioids, accidental (unintentional), initial encounter; B18.2 Chronic viral hepatitis C; E87.6 Hypokalemia; E03.9 Hypothyroidism, unspecified; G89.29 Other chronic pain; M79.601 Pain in right arm; F03.90 Unspecified dementia, unspecified severity, without behavioral disturbance, psychotic disturbance, mood disturbance, and anxiety; Z99.3 Dependence on wheelchair; Y92.018 Other place in single-family (private) house as the place of occurrence of the external cause; Z86.73 Personal history of transient ischemic attack (TIA), and cerebral infarction without residual deficits
CPT/HCPCS: 84439; 97110-GP; 97116-GP; 97530-GP; G0480; J0456; J0696; J1644; J3480; J3490; J7030; J7120; Q0092

== ENCOUNTER 2018-06-12 14:32 | Inpatient (IN) | payer OTHER, MEDICAID ==
[~2018-06-12] VITALS: Ht 177.8 cm; Wt 65.8 kg
--- NOTE | 2018-06-12 14:37 | NUR ---
BS 104 IN FIELD
[2018-06-12 14:43] VITALS: Ht 177.8 cm; Wt 65.8 kg
--- NOTE | 2018-06-12 14:50 | NUR ---
PT BIBA FROM HOME. PER MEDICS FAMILY AT HOME ARE POOR HISTORIANS AND UNABLE TO PROVIDE MEDICAL HISTORY FOR PATIENTS. PT ARRIVED TO ED ON STRETCHER WITH STRONG SMELL OF URINE INCONTINENCE ODOR. CLOTHES ARE DIRTY WITH A HEAVY AMT OF SKIN FLAKES ON IT AND PT APPEARS TO BE UNGROOMED. PT ABLE TO STATE HIS FULL NAME AND . PT IRRITABLE AND ASKED ME TO READ A PAPER "OR CAN YOU ONLY READ TELUGU?"
--- NOTE | 2018-06-12 14:54 | NUR ---
DR JAMES AT BEDSIDE FOR ASSESSMENT. ASKED PT WHY HE IS HERE, PT REPLIED "I DON'T KNOW, I JUST WOKE UP AND GOT MAD AT EVERYTHING AND EVERYONE!" PT CALLING STAFF ASSHOLE
--- NOTE | 2018-06-12 15:00 | NUR ---
3 FENTANYL PATCHES FOUND TO PT'S SHOULDER/BACK AND REMOVED
--- NOTE | 2018-06-12 15:15 | NUR ---
DIFFICULT INSERTION WITH ROGERS 16FR FROM KIT; 14FR COUDE TIP USED - SMOOTH INSERTION NOTED. ASKED PT IF HE HAD HISTORY OF ENLARGED PROSTATE, PT REPLIED WITH PROFANITY IN ISRAELI PER ISRAELI SPEAKING STAFF
[2018-06-12 15:23] LABS: microscopic required? NO
[2018-06-12 15:50] LABS: BASOPHIL % 0.6 % (0-2); CALCIUM 9.3 mg/dL (8.5-10.1); CARBON DIOXIDE 23.7 mmol/L (21-32); CHLORIDE SERUM 100 mmol/L (98-107); CREATININE SERUM 0.6 mg/dL (0.7-1.3); GLUCOSE SERUM 88 mg/dL (74-106); PLATELET COUNT 176 x10^3mcL (130-400); POTASSIUM SERUM 3.7 mmol/L (3.5-5.1); RED CELL DISTRIBUTION WIDTH 13.7 % (11.5-14.5); SODIUM SERUM 136 mmol/L (136-145)
[2018-06-12 15:53] LABS: UA SPECIFIC GRAVITY 1.015 (1.005-1.035)
[2018-06-12 15:54] LABS: urine erythrocyte NEGATIVE (NEGATIVE)
[2018-06-12 16:02] LABS: ALKALINE PHOSPHATASE 65 U/L (46-116); ALT/SGPT 59 U/L (16-63); AST/SGOT 62 U/L (15-37); BILIRUBIN TOTAL 0.69 mg/dL (0.20-1.00); CHOLESTEROL 174 mg/dL (<200); HDL CHOLESTEROL 45 mg/dL (40-60); LIPASE 92 IU/L (73-393); MAGNESIUM 2.2 mg/dL (1.8-2.4); TOTAL PROTEIN, SERUM 8.2 g/dL (6.4-8.2)
[2018-06-12 16:04] LABS: T4(THYROXINE) 14.3 ug/dL (4.7-13.3)
[2018-06-12 16:11] LABS: AMPHETAMINE QUAL UR POSITIVE (See below)
--- NOTE | 2018-06-12 16:30 | NUR ---
SOFT RESTRAINTS TO BL WRISTS REMOVED
--- NOTE | 2018-06-12 16:35 | NUR ---
PT RETURNED FROM CT SCAN. NO INCIDENCE. PLACED BACK ON CARDIAC MONITORING.
--- NOTE | 2018-06-12 16:52 | NUR ---
PT SLEEPING, EASY TO AROUSE AWAKE. CHEST RISE EASY AND REGULAR. NAD NOTED
--- NOTE | 2018-06-12 17:42 | NUR ---
PT SLEEPING, EASY TO AROUSE AWAKE. NAD NOTED. IVF INFUSING ORDERED
--- NOTE | 2018-06-12 18:31 | NUR ---
PT SLEEPING. LIGHT SNORE HEARD. REMAINS ON FULL MONITORS.
--- NOTE | 2018-06-12 19:05 | NUR ---
RASH SEEN TO IV SITE. NO SIGNS OF INFILTRATION NOTED. IV PATENT AND FLUSHES WELL. DR JAMES INFORMED OF SAME. PER DR JAMES, INFUSE LEVAQUIN AT SLOWER RATE. INFORMED PRIMARY RN NEGIN OF SAME
--- NOTE | 2018-06-12 19:06 | NUR ---
REPORT GIVEN TO NEGIN BONILLA RN
--- NOTE | 2018-06-12 19:28 | NUR ---
REPORT GIVEN TO
--- NOTE | 2018-06-12 19:30 | NUR ---
RECEIVED REPORT FROM ALBERT SEVILLA, I WILL RESUME FURTHER CARE OF THIS PATIENT. TP IS RESTING IN POSITION OF COMFORT WITH EYES CLOSED, AROUSABLE TO PAINFUL STIMULI, NO DISTRESS NOTED AT THSI TIEM, RESP E/U. WILL CONT TO MONITOR.
--- NOTE | 2018-06-12 20:00 | NUR ---
RECEIVED PT FROM ED VIA LUIZ, CAME IN DUE TO INCREASED ALOC. DROWSY, ABLE TO STATE NAME AND BIRTHDATE ONLY. ABLE TO FOLLOW SOME SIMPLE COMMANDS. SPEECH IS GARBLED. PUPILS ARE FIXED. NO SOB NOTED, LUNG SOUNDS CTA. DENIES CHEST PAIN/PRESSURE, SINUS BRADYCARDIA ON THE MONITOR. DENIES ABDOMINAL DISCOMFORT. W/ MICRONESIAN 16 ROGERS CATHETER DRAINING W/ YELLOW COLORED URINE. W/ SCATTERED BLANCHABLE ERYTHEMA ON THE ABDOMEN AND BACK. W/ ABRASION ON THE LEFT ARMPIT, LLE SCABS AND ABRASION ON THE RIGHT ARM, SQL SSRS DEVELOPER. SIDE RAILS UPX2. CALL LIGHT ON REACH. HOB ELEVATED AT 30 DEG. BED ALARM ON. PRIMARY NURSE SAROJ AT BEDSIDE FOR CONTINUITY OF CARE
--- NOTE | 2018-06-12 20:15 | NUR ---
RECEIVED AND SEEN PT IN BED DROWSY BUT EASILY AROUSABLE.NO SOB NOTED. NO INDICATION OF PAIN.IV ISTE PATENT AND INTACT. F/C IN PLACED. BED IN LOWEST POSITION,CALL LIGHT WITHIN REACH. WILL CONTINUE TO MONITOR.
[2018-06-12 20:39] VITALS: BP 149/96
--- NOTE | 2018-06-13 02:40 | NUR ---
PT C/O PAIN. MEDICATED TYLENOL 650MG ORDERED. WILL CONTINUE TO MONITOR.
--- NOTE | 2018-06-13 05:16 | NUR ---
PT APPEARS TO BE SLEEPING.NO SOB NOTED.NO S/S OF PAIN.BED IN LOWEST POSITION,CALL LIGHT WITHIN REACH. WILL CONTINUE TO MONITOR.
[2018-06-13 05:55] VITALS: BP 129/79
[2018-06-13 06:57] LABS: BASOPHIL % 0.9 % (0-2); PLATELET COUNT 156 x10^3mcL (130-400); RED CELL DISTRIBUTION WIDTH 13.5 % (11.5-14.5)
--- NOTE | 2018-06-13 07:03 | NUR ---
RECEIVED BEDSIDE REPORT FROM TUB OPERATOR NURSE. PATIENT IS STABLE, RESPIRATIONS EVEN, ON ROOM AIR. NO SIGNS OF APPARENT RESPIRATORY DISTRESS. PATIENT DENIES PAIN AT THIS TIME. ON TELE MONITOR . ROGERS IN PLACE. PATIENTN HAS ABRASION TO RFA, L ARM PIT, LUE, LLE, RUE, AND SOME BLANCHABLE ERYTHEMA TO BACK. IV INFUSING WELL TO RFA, NS AT 70ML/HR. QUESTIONS AND CONCERNS ADDRESSED. SAFETY PRECAUTIONS IN PLACE.
[2018-06-13 07:08] LABS: CALCIUM 8.4 mg/dL (8.5-10.1); CARBON DIOXIDE 22.7 mmol/L (21-32); CHLORIDE SERUM 106 mmol/L (98-107); CREATININE SERUM 0.5 mg/dL (0.7-1.3); GLUCOSE SERUM 78 mg/dL (74-106); POTASSIUM SERUM 3.5 mmol/L (3.5-5.1); SODIUM SERUM 142 mmol/L (136-145)
--- NOTE | 2018-06-13 07:26 | NUR ---
CARE ENDORSED TO DAY NURSE PATRICIA.
--- NOTE | 2018-06-13 08:30 | NUR ---
ADMINISTERED MORNING MEDICATIONS. PATIENT TOLORATED WELL. GLENNA RUIZ AT BEDSIDE. DISCUSSED POSSIBLE DC WITH PATIENT. NO FURTHER ORDERS AT THIS TIME. SAFETY PRECAUTIONS IN PLACE.
--- NOTE | 2018-06-13 09:00 | NUR ---
PER DR RUIZ PATIENT WILL BE DISCHARGED. PATIENT IS STABLE TALKING WELL, DENIES PAIN AND IS EAGER TO GO HOME. HIS BROTHER WILL BE DRIVING HIM HOME. WILL CALL BROTHER TO NOTIFY HIM OF PATIENT DISCHARGE.
--- NOTE | 2018-06-13 10:00 | NUR ---
ATTEMPTED TO CONTACT PATIENT BROTHER TO NOTOFY OF PATIENT DISCHARGE. NO ANSWER. WAITING FOR CALL BACK.
[2018-06-13 10:27] VITALS: BP 134/81
--- NOTE | 2018-06-13 10:33 | NUR ---
PATIENT IS STABLE, RESTING IN BED. DENIES PAIN AT THIS TIME. WE ARE WAITING FOR CALL BACK FROM BOTHER TO DISCHARGE TO HOME. QUESTIONS AND CONCERNS ADRESSED, SAFETY PRECAUTIONS MAINTAINED.
[2018-06-13 10:51] VITALS: BP 129/79
[2018-06-13 12:55] VITALS: BP 158/93
--- NOTE | 2018-06-13 13:08 | NUR ---
ATTEMPTED TO CALL PATIENT'S BROTHER TO [employer] AFTER DC. NO ANSWER, WILL WAIT FOR CALL BACK.
--- NOTE | 2018-06-13 14:34 | NUR ---
PATIENT IS RESTING COMFORTABLY IN BED, WE ARE STILL WAITING FOR BROTHER TO CALL BACK FOR MILLINERY BLOCKER.
--- NOTE | 2018-06-13 16:11 | NUR ---
SISTER IN LAW CAME TO VISIT PATIENT. SHE WILL TRANSPORT PATIENT HOME. 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 WAITING FOR SISTER IN LAW TO RETURN FOR DISCHAGE.
--- NOTE | 2018-06-13 17:17 | NUR ---
PATIENT IS STABLE BACK TO BASELINE. PATIENT HAS BEEN GIVEN DISCHARGE INSTRUCTIONS. PATIENT HAS VERBALIZED UNDERSTANDING OF DISCHARGE INSTRUCTIONS. STSTER IN LAW IS HERE TO TRANSPORT PATIENT TO HOME. IV, DISCONTINUED, ROGERS CATH DC'ED WITH 250ML OF YELLOW URINE.TELE MONITOR REMOVED, ID BANDS REMOVED. ALL PERSONAL BELONGINGS WITH PATIENT. PATIENT TAKEN DOWN BY HAIR BALER.
[2018-06-19 04:10] LABS: CK-BB 0 % (0); CK-MB 0 % (0-3); CK-MM 97 % (97-100); MACRO TYPE 1 3 % (Not Observed); MACRO TYPE 2 0 % (Not Observed)
== END 2018-06-13 17:28 | disposition home or self-care (01) | DRG 92 ==
LOC: ED 14:32 → DU 18:53
PROVIDERS: Emergency Medicine; ADMIT Internal Medicine Pulmonary Disease
DX: G92 Toxic encephalopathy (principal); F15.20 Other stimulant dependence, uncomplicated; F11.20 Opioid dependence, uncomplicated; M62.82 Rhabdomyolysis; F12.20 Cannabis dependence, uncomplicated; E86.0 Dehydration; L80 Vitiligo; I10 Essential (primary) hypertension; F03.90 Unspecified dementia, unspecified severity, without behavioral disturbance, psychotic disturbance, mood disturbance, and anxiety; B18.2 Chronic viral hepatitis C; E03.9 Hypothyroidism, unspecified; Z74.01 Bed confinement status; Z86.73 Personal history of transient ischemic attack (TIA), and cerebral infarction without residual deficits
CPT/HCPCS: G0480; J1630; J1956; J2060; J3411; J3475; J3490; J7030; J7040

== ENCOUNTER 2018-10-16 16:04 | Inpatient (IN) | payer OTHER, MEDICAID ==
[~2018-10-16] VITALS: Ht 177.8 cm; Wt 55.5 kg
--- NOTE | 2018-10-16 16:45 | NUR ---
RT AT BEDSIDE FOR ABG
--- NOTE | 2018-10-16 16:57 | NUR ---
XRAY AT BEDSIDE.
--- NOTE | 2018-10-16 17:02 | NUR ---
LATE ENTRY: PT BIBA FROM HOME, PER FAMILY, PT MORE ALTERED THAN USUAL. PT TACHYPNIC AT 35B/MIN, ST AT 155, FEBRILE AT 105.6 RECTALLY. LS-RHONCHI MARIELY, ICE PACKS IMMEDIATELY PLACED, IV #20 TO RT FA, FLUID BOLUS STARTED,IN AND OUT CATH DONE AND URINE COLLECTED AND PROCESSED. PT NOTED TO BE CACHETIC, WITH REDNESS TO COCCYX AREA, INCONTINENT OF URINE AND STOOL. PT CLEANED, MEDICATED, AND POSITIONED FOR COMFORT. PT ALERT TO NAME ONLY, REQUESTING WATER. DRANK 100 ML OF WATER WITHOUT ANY DIFFICULTY. ,
[2018-10-16 17:20] LABS: PLATELET COUNT 323 x10^3mcL (130-400)
[2018-10-16 17:24] LABS: RED CELL DISTRIBUTION WIDTH 14.6 % (11.5-14.5)
[2018-10-16 17:35] LABS: UA SPECIFIC GRAVITY 1.015 (1.005-1.035); microscopic required? YES; urine erythrocyte 1+ (NEGATIVE)
[2018-10-16 17:35] LABS: CALCIUM 9.1 mg/dL (8.5-10.1); CARBON DIOXIDE 20.1 mmol/L (21-32); CHLORIDE SERUM 110 mmol/L (98-107); CREATININE SERUM 1.5 mg/dL (0.7-1.3); GLUCOSE SERUM 201 mg/dL (74-106); POTASSIUM SERUM 3.5 mmol/L (3.5-5.1); SODIUM SERUM 150 mmol/L (136-145)
[2018-10-16 17:40] LABS: ALBUMIN 4.2 g/dL (3.4-5.0); ALKALINE PHOSPHATASE 60 U/L (46-116); ALT/SGPT 48 U/L (16-63); AST/SGOT 56 U/L (15-37); BILIRUBIN TOTAL 0.63 mg/dL (0.20-1.00)
[2018-10-16 17:47] LABS: CHOLESTEROL 208 mg/dL (<200); HDL CHOLESTEROL 64 mg/dL (40-60)
--- NOTE | 2018-10-16 17:55 | NUR ---
DR SUÁREZ INFORMED OF CRITICAL TROP AT 1.257.
--- NOTE | 2018-10-16 18:09 | NUR ---
DR SUÁREZ NOTIFIED, LACTIC ACID 6.9
--- NOTE | 2018-10-16 18:20 | NUR ---
SECOND EKG IN PROCESS, MEDICATED ORDERED.
[2018-10-16 18:39] LABS: BAND NEUTROPHIL 4 % (0-10); MONOCYTE 2 % (0-7); PLATELET MORPHOLOGY PLATELETS NORMAL; SEGMENTED NEUTROPHILS 89 % (37-75); rbc morphology (normal/abnorm) NORMAL (NORMAL)
--- NOTE | 2018-10-16 19:23 | NUR ---
PER MD SUÁREZ PT RECEIVED WATER EARLIER TODAY AND STATED OKAY TO GIVE WATER. PER MY EVALUATION PT IS UNABLE TO SWALLOW WATER WITHOUT COUGHING WHILE SITTING IN HIGH FOWLERS POSITION. MD SUÁREZ MADE AWARE.
--- NOTE | 2018-10-16 20:43 | NUR ---
PT GIVEN SIPS OF WATER, PT TOLERATED WELL.
--- NOTE | 2018-10-16 20:44 | NUR ---
PT VOIDED IN BED. PT PROVIDED WITH PERICARE AND NEW LINEN CHANGE. PT SITITNG UP IN BED.
--- NOTE | 2018-10-16 21:12 | NUR ---
REPORT GIVEN TO REGINA SEVILLA TO ASSUME CARE OF PT.
[2018-10-16 21:47] VITALS: BP 135/90
--- NOTE | 2018-10-16 21:52 | NUR ---
RECEIVED PT FROM ED VIA LUIZ. ORIENTED PT TO ROOM AND SURROUNDINGS. IV NOTED TO RFA PATENT AND INTACT. TELE 4 PLACED ON PT READING NSR. INSTRUCTED PT ON THE USE OF CALL LIGHT FOR ASSISTANCE. ENDORSED PT TO PRIMARY NURSE ABE
--- NOTE | 2018-10-16 22:30 | NUR ---
RECEIVED CRITICAL LAB RESULTS: LACTIC ACID: 2.1, TROPONIN: 1.636. DR. EASON MADE AWARE, ORDERED CONSULT WITH DR. HERNANDEZ. HEPARIN SQ GIVEN PER EMAR. ON TELE# 4 READING SR 74. IV PATENT AND INTACT RUNNING FLUIDS PER EMAR. EVEN AND UNLABORED RESPIRATIONS ON 2LNC. AIR MATTRESS IN PLACE. BED IN LOWEST POSITION. SIDE RAILS UXP2. CALL LIGHT WITHIN REACH. WILL CONTINUE TO MONITOR.
[2018-10-17] VITALS (7 sets, daily range): BP systolic 106–136; BP diastolic 68–90; Ht 177.8 cm; Wt 55.5 kg
--- NOTE | 2018-10-17 00:03 | NUR ---
PT ASLEEP COMFORTABLY IN BED. NO ACUTE DISTRESS NOTED. EVEN AND UNLABORED RESPIRATIONS ON 2LNC. ON TELE#4 SR 67. IV PATENT AND INTACT RUNNING FLUIDS PER EMAR. BED IN LOWEST POSITION. AIR MATTRESS IN USE, SIDE RAILS UPX2. CALL LIGHT WITHIN REACH. WILL CONTINUE TO MONITOR.
[2018-10-17 06:28] LABS: BASOPHIL % 0.2 % (0-2); PLATELET COUNT 173 x10^3mcL (130-400)
--- NOTE | 2018-10-17 06:33 | NUR ---
PT SLEPT COMFORTABLY IN INTERVALS THROUGHOUT THE SHIFT. ALL NEEDS TENDED TO AND MET. ALL SCHEDULED MEDICATIONS GIVEN. EVEN AND UNLABORED RESPIRATIONS ON 2LNC. ON TELE#4 READING SR 75 WITH OCC PVC'S. IV PATENT AND INTACT. BED IN LOWEST POSITION. AIR MATTRESS IN USE. SIDE RAILS UPX2. CALL LIGHT WITHIN REACH. WILL ENDORSE TO ONCOMING SHIFT.
[2018-10-17 06:36] LABS: RED CELL DISTRIBUTION WIDTH 14.8 % (11.5-14.5)
[2018-10-17 06:40] LABS: CALCIUM 7.4 mg/dL (8.5-10.1); CARBON DIOXIDE 17.6 mmol/L (21-32); CHLORIDE SERUM 110 mmol/L (98-107); CREATININE SERUM 0.6 mg/dL (0.7-1.3); GLUCOSE SERUM 112 mg/dL (74-106); SODIUM SERUM 144 mmol/L (136-145)
[2018-10-17 06:55] LABS: POTASSIUM SERUM 2.4 mmol/L (3.5-5.1)
--- NOTE | 2018-10-17 07:19 | NUR ---
CRITICAL LABS: K:2.4 AND TROPONIN: 1.064, ENDORSED TO ONCOMING SHIFT.
--- NOTE | 2018-10-17 10:58 | NUR ---
DR EASON WAS AT BEDSIDE. RECEIVED READBACK ORDERS AND PLACED FOR K-RIDER 40MEQ IV, 40MEQ POTASSIUM PO Q4H X2 DOSE ONLY, AND NS W/ 20MEQ K FLUID AT 100ML/HR, RECHECK BMP AND MAG LABS AT 1700. PER DR EASON OKAY TO DISCHARGE AFTER DINNER TODAY IF POTASSIUM IMPROVES. PATIENT COOPERATIVE WITH PLAN OF CARE.
--- NOTE | 2018-10-17 11:50 | NUR ---
PATIENT REPORTS PAIN TO IV SITE, K-RIDER INFUSING AT THIS TIME. IV SITE WNL. REMINDED HIM OF THE SIDE EFFECTS OF K-RIDER. COLD PACK APPLIED TO SITE, PATIENT STATES HELPS W/ DISCOMFORT. WILL CONT TO MONITOR.
--- NOTE | 2018-10-17 12:48 | NUR ---
PATIENT BROTHER CALLED THE STATION, INFORMED HIM OF PATIENT POSSIBLY DISHCARGING PER DR YUMI SMITH IF POTASSIUM LEVEL IMPROVES LATER TODAY. PER BROTHER, PATIENT'S SON CAN PROBABLY PICK HIM UP IF DISCHARGE HAPPENS.
--- NOTE | 2018-10-17 14:19 | NUR ---
ECHO IN PROGRESS AT BEDSIDE, NO SIGN OF ACUTE DISTRESS AT THIS TIME.
--- NOTE | 2018-10-17 17:11 | NUR ---
ATTEMPTING TO CALL BROTHER AND PHONE NUMBER ON FACE SHEET MULTIPLE TIMES, GOES TO BUSY LINE. PER PATIENT, HE DOES NOT KNOW ANY PHONE NUMBERS OF HIS RELATIVES THAT WE CAN TRY CALLING. WILL CONTINUE TO MAKE PHONE CALLS TO BROTHER. PATIENT HAD INCONTINENT BM, NORMAL STOOL. PATIENT CLEANSED. OPTIFOAM REPLACED.
[2018-10-17 17:32] LABS: CALCIUM 7.3 mg/dL (8.5-10.1); CARBON DIOXIDE 23.2 mmol/L (21-32); CHLORIDE SERUM 111 mmol/L (98-107); CREATININE SERUM 0.7 mg/dL (0.7-1.3); GLUCOSE SERUM 109 mg/dL (74-106); MAGNESIUM 1.9 mg/dL (1.8-2.4); SODIUM SERUM 143 mmol/L (136-145)
--- NOTE | 2018-10-17 18:19 | NUR ---
POTASSIUM 5.0, DR PADILLA PAGED AND MADE AWARE. PER ANUJ JUAREZ TO FINALIZE AND DISCHARGE PATIENT. VOICE MESSAGE LEFT FOR NUT PACKER DENEEN.
--- NOTE | 2018-10-17 19:20 | NUR ---
REPORT GIVEN TO ALVERTO REYES NURSE AT BEDSIDE. DISCHARGE INSTRUCTIONS GIVEN, PATIENT VERBALIZED UNDERSTANDING. HEMMER LOCKSTITCH DENEEN TO ARRIVE TO EVENT MARKETING ASSISTANT PATIENT IN 30 MIN. ENDORSED CARE TO ALVERTO TO REMOVE IV AND TELE BEFORE DC.
--- NOTE | 2018-10-17 19:45 | NUR ---
REV\ECIVED REPORT FROM RN AM SHIFT, PT FOR DISCAHRGE TODAY. PT ALERT WITH PERIODS OF CONFUSION AND DISORIENTATION. RSPIRATION EVEN AND UNLABORED. DENEIS ANY PAIN/DISCOMFORT. PY JUST WAITING FOR THE CAREGIVER YO PICK HIM UP. DISCAHRGE PAPERS COMPLETED, VITAL SIGN TAKE AND RECORDED.
--- NOTE | 2018-10-17 22:07 | NUR ---
DISCHARGED VIA WHEELCHAIR BY NURSE ASSIGNED ACCOMPANIED BY SON VIA PRIVATE CAR IN STABLE CONDITION. ALL BELONGINGS GIVEN TO THE SON. ALL NEEDS ATTENDED,
== END 2018-10-17 22:10 | disposition home or self-care (01) | DRG 922 ==
LOC: ED 16:04 → DU 20:14
PROVIDERS: Emergency Medicine; ADMIT Internal Medicine Pulmonary Disease
DX: T67.0XXA Heatstroke and sunstroke, initial encounter (principal); G93.41 Metabolic encephalopathy; E87.1 Hypo-osmolality and hyponatremia; E44.1 Mild protein-calorie malnutrition; F44.4 Conversion disorder with motor symptom or deficit; E87.6 Hypokalemia; D72.828 Other elevated white blood cell count; B18.2 Chronic viral hepatitis C; I10 Essential (primary) hypertension; E03.9 Hypothyroidism, unspecified; F03.90 Unspecified dementia, unspecified severity, without behavioral disturbance, psychotic disturbance, mood disturbance, and anxiety; Z86.73 Personal history of transient ischemic attack (TIA), and cerebral infarction without residual deficits; Z99.3 Dependence on wheelchair; X30.XXXA Exposure to excessive natural heat, initial encounter; Y92.003 Bedroom of unspecified non-institutional (private) residence as the place of occurrence of the external cause
CPT/HCPCS: 36600; 83880; G0378; J1644; J2543; J3480; J7030; J7620; Q0092

== ENCOUNTER 2019-11-02 14:03 | Observation (INO) | payer OTHER, MEDICAID ==
[~2019-11-02] VITALS: Ht 177.8 cm; Wt 62.1 kg
--- NOTE | 2019-11-02 14:20 | NUR ---
IN ADDITION, PER [facility], "PT HAD ONE RUN OF V TACH WHEN WE ARRIVED, BUT IT WAS NOT RECORDED," "UPON ENTERING THE ER, PT WAS NSR,"
--- NOTE | 2019-11-02 14:20 | NUR ---
PT BIBA FROM HOME C/O INCREASED GENERALIZED WEAKNESS, PER FAMILY, CALLED 911, BECAUSE PT WAS NOT ABLE TO GET INTO HIS CHAIR FROM HIS BED, UPON ARRIVAL, PT TRANSFERRED TO BED T2B WITH NO INCIDENT, AAOX4, SPEAKS IN CLEAR SENTENCES, FOLLOWS COMMANDS, STATES HIS RIGHT UPPER AND LOWER EXTREMITIES ARE WEAK PRIOR AND STS "MY RIGHT SIDE IS ALWAYS LIKE THAT, AND MY RIGHT SHOULDER HURTS BUT IT ALWAYS HURTS." PT IS ABLE TO MOVE HIS LEFT UPPER AND LOWER EXTREMITIES, PT ALSO STATED HE HAS A HEADACHE 7/10 PRESSURE, BUT HE ALWAYS HAS A HEADACHE, GOWNED, PLACED ON FULL CM, SAFETY PRECAUTIONS IN PLACE, CALL LIGHT WITHIN REACH. WILL MONITOR. MSE DONE BY DR JAMES.
--- NOTE | 2019-11-02 14:27 | NUR ---
RT AT BEDSIDE WITH ABG DRAW
--- NOTE | 2019-11-02 14:41 | NUR ---
PT TO CT VIA RENAN RUSH
--- NOTE | 2019-11-02 14:43 | NUR ---
PT TAKEN TO CT VIA RWU.
--- NOTE | 2019-11-02 15:26 | NUR ---
X RAY AT BEDSIDE
[2019-11-02 16:46] LABS: microscopic required? YES; urine erythrocyte 1+ (NEGATIVE)
[2019-11-02 17:07] LABS: AMPHETAMINE QUAL UR POSITIVE (See below)
[2019-11-02 17:07] LABS: BASOPHIL % 0.8 % (0-2); PLATELET COUNT 187 x10^3mcL (130-400)
[2019-11-02 17:10] LABS: CALCIUM 8.1 mg/dL (8.5-10.1); CHLORIDE SERUM 104 mmol/L (98-107); CREATININE SERUM 0.6 mg/dL (0.7-1.3); GLUCOSE SERUM 151 mg/dL (74-106); POTASSIUM SERUM 4.1 mmol/L (3.5-5.1); SODIUM SERUM 139 mmol/L (136-145)
[2019-11-02 17:13] LABS: RED CELL DISTRIBUTION WIDTH 15.7 % (11.5-14.5)
[2019-11-02 17:21] LABS: ALKALINE PHOSPHATASE 43 U/L (46-116); ALT/SGPT 37 U/L (16-63); AST/SGOT 60 U/L (15-37); BILIRUBIN TOTAL 0.5 mg/dL (0.20-1.00); C REACTIVE PROTEIN 0.3 mg/dL (<=0.9); CHOLESTEROL 160 mg/dL (<200); HDL CHOLESTEROL 47 mg/dL (40-60); LACTIC DEHYDROGENASE (LDH) 462 U/L (100-190); LIPASE 116 IU/L (73-393); MAGNESIUM 2.3 mg/dL (1.8-2.4); T4(THYROXINE) 9.7 ug/dL (4.7-13.3); TOTAL PROTEIN, SERUM 6.8 g/dL (6.4-8.2)
--- NOTE | 2019-11-02 18:22 | NUR ---
PT SITTING UP IN BED EATING DINNER, AAOX4, NO ACUTE DISTRESS NOTED, VSS, WILL MONITOR.
--- NOTE | 2019-11-02 18:40 | NUR ---
CALLED REPORT TO DIANN BURR RN
--- NOTE | 2019-11-02 19:05 | NUR ---
RECEIVED PT FROM ED VIA LUIZ, CAME IN DUE TO WEAKNESS. AAOX3 (PERSON, PLACE, BIRTHDATE, SITUATION AND MONTH ONLY). ABLE TO FOLLOW COMMANDS. HAND MOLDER FITTING ARE EQUAL AND STRONG. SPEECH IS CLEAR. NO SOB NOTED, LUNG SOUNDS DIMINISHED ON AUSCULTATION, O2 SAT=95%, RA. DENIES CHEST PAIN/PRESSURE, SR ON THE MONITOR. DENIES ABDOMINAL DISCOMORT. URINE INCONTINENT. W/ SCATTERED PIGMENTATIONS ON THE BODY, BLANCHABLE ERYTHEMA ON THE HEELS, AND ECCHYMOSIS ON LFA, NAOMY. LIMITED ROM ON RUE AND BLE. C/O 8/10 RIGHT SHOULDER AND RIGHT ARM PAIN. SIDE RAILS UPX2. CALL LIGHT ON REACH. HOB ELEVATED AT 30 DEG. PRIMARY NURSE KARLEY AT BEDSIDE FOR CONTINUITY OF CARE
[2019-11-02 19:26] VITALS: BP 110/66
[2019-11-02 19:36] VITALS: Ht 177.8 cm; Wt 62.1 kg
--- NOTE | 2019-11-02 19:48 | NUR ---
NOTED PT HAD ORDER FOR COVID 19 MARIANNA TEST. INFORMED CN DIMAS. PT TO BE TRANSFERRED TO [address] [place] [address] PUI[address] CALLED [address] [place] [address] FOR ROOM.
--- NOTE | 2019-11-02 19:52 | NUR ---
VERIFIED WITH LAB, SPECIMEN FOR COVID 19 MARIANNA TEST IS IN LAB.
--- NOTE | 2019-11-02 20:23 | NUR ---
PT AWAKE AND ALERT, WATCHING TV. ON DROPLET/CONTACT ISOLATION.
--- NOTE | 2019-11-02 21:00 | NUR ---
TRANSFERRED TO ROOM 217B, ENDORSED TO NURSE GARCES. PT AWAKE AND ALERT. BREATHING EVEN AND UNLABORED ON ROOM AIR.
[2019-11-02 21:30] VITALS: BP 125/78
--- NOTE | 2019-11-02 21:30 | NUR ---
RECEIVED PATIENT REPORT. PATIENT IS AAOX3, DENIES ESTRELLA/DIZZINESS. BREATHING EVEN AND UNLABORED ON RA WITH NO SOB NOTED, O2SAT 95%. DENIES COUGH. DIMINISHED LUNG SOUNDS. AFEBRILE. VS STABLE. ABD SOFT/ROUND, ACTIVE BOWEL SOUNDS. DENIES ABD PAIN. PATIENT ON TELE#20 SR HR 60 ON MONITOR, DENIES CHEST PAIN/PRESSURE. PATIENT HAS GENERALIZED WEAKNESS. LIMITED MOVEMENT TO LEFT ARM. IV RFA, LH PATENT. SKIN PIGMENTATION NOTED TO BODY. ERYTHEMA NOTED TO MARIELY HEELS, ELEVATED ON PILLOW. ORIENTED TO ROOM. CALL BUTTON WITHIN REACH. SAFETY PRECAUTIONS IN PLACE. WILL MONITOR.
--- NOTE | 2019-11-02 23:30 | NUR ---
SWABBED PATIENT FOR COVID 19 AND SENT TO LAB.
--- NOTE | 2019-11-03 00:20 | NUR ---
ASSITED PATIETN TO USE BEDPAN. PATIENT NOTED TO BE WEAK FROM RIGHT SIDE OF BODY AND NEEDS ASSISTANCE TURNING. PATIENT REPROTED SHOULDER PAIN, MEDICATED PER EMAR. SAFETY PRECAUTIONS IN PLACE. WILL MONITOR.
[2019-11-03 05:41] VITALS: BP 108/47
--- NOTE | 2019-11-03 05:56 | NUR ---
PATIENT SLEPT ON AND OFF THROUGHOUT THE NIGHT WITH NO ACUTE DISTRESS. UNLABORED BREATHING ON RA. PATIENT SB ON MONITOR HR 58. PATIENT REPORTED SHOULDER PAIN, MEDICATED PER EMAR. TURNED AND REPOSITIONED NEEDED. IV PATENT, INFUSING WELL WITH NO SIGNS OF INFILTRATION NOTED. ALL NEEDS MET. SAFETY PRECAUTIONS IN PLACE. WILL MONITOR.
--- NOTE | 2019-11-03 06:13 | NUR ---
SPOKE WITH LAB REGARDING FERRATIN RESULTS STILL PENDING, PER LAB WILL BE DONE UNTIL Monday11/04/2019
[2019-11-03 07:09] LABS: BASOPHIL % 0.8 % (0-2)
--- NOTE | 2019-11-03 07:22 | NUR ---
PATIENT IN NO ACUTE DISTRESS. ENDORSED CARE TO ALEX SEVILLA, ALL QUESTIONS ADDRESSED.
[2019-11-03 07:30] VITALS: BP 95/65
[2019-11-03 07:39] LABS: CALCIUM 8.2 mg/dL (8.5-10.1); CARBON DIOXIDE 26.3 mmol/L (21-32); CHLORIDE SERUM 107 mmol/L (98-107); CREATININE SERUM 0.6 mg/dL (0.7-1.3); GLUCOSE SERUM 95 mg/dL (74-106); MAGNESIUM 2.5 mg/dL (1.8-2.4); PHOSPHOROUS 2.6 mg/dL (2.5-4.9); POTASSIUM SERUM 3.5 mmol/L (3.5-5.1); SODIUM SERUM 142 mmol/L (136-145)
--- NOTE | 2019-11-03 08:22 | NUR ---
RECIEVED PT FROM PREVIOUS SHIFT. PT IS RESTING IN BED DENIES ANY PAIN. BREATHING IS EVEN AND UNALBORED ON ROOM AIR, IN NO APPARENT DISTRESS. PT HAS AN IV TO THE LEFT FOR ARM. DRESSING IS C/D/I. PT BED IS IN THE LOWEST PSOTION AND CALL LIGHT IS WIHTIN REACH. WILL CONTINUE TO MONITOR.
[2019-11-03 09:35] LABS: PLATELET COUNT 128 x10^3mcL (130-400); RED CELL DISTRIBUTION WIDTH 15.5 % (11.5-14.5)
--- NOTE | 2019-11-03 10:29 | NUR ---
DR. SINGH AT BEDSIDE SPEAKING WITH PT ABOUT PLAN TO BE SEEN BY PHYSICAL THERAPY, PT OKAY WITH SNF PLACEMENT, PER DR. SINGH WILL AWAIT PT EVAL AND PLAN FOR SNF PLACEMENT.
[2019-11-03 12:30] VITALS: BP 130/73
--- NOTE | 2019-11-03 13:09 | NUR ---
PT CALLING ON THE CALL LIGHT TO USE BATHROOM. BREE PERAZA WENT IN TO ASSIST PT WITH BEDPAN, PT STARTED TO GET AGGRESSIVE WITH STAFF PT THROUGH TELE AT STAFF AND VARIOUS ITEMS. WENT TO ASSIST PT, PT YELLING HE NEEDS TO GO TO PT EXPLAINED TO PT WILL ASSIST HIM WITH BEDPAN, HOWEVER PT STILL YELLING STATING "NO ONE HAS HELPED ME AND IM SICK OF THIS PLACE." TOLD PT IF HE WANTS TO LEAVE HE CAN NO ONE IS FORCING HIM TO STAY. PT STATES WELL I NEED TO USE THE BATHROOM FIRST. PLACED PT ON BEDPAN. PT STATES "WELL COME BACK IN 10 MINUTES AND I WILL LET KNOW WHAT I DECIDE. ENCOURAGED PT TO USE CALL LIGHT IF NEEDING HELP. WILL CONTINUE TO MONITOR.
--- NOTE | 2019-11-03 13:25 | NUR ---
WENT TO CHECK PT. PT CALM AT THIS TIME. PT APOLOGIZED FOR BEING AGGRESSIVE WITH STATES "I NEVER GET LIKE THIS. I AM JUST UPSET." PT ASKING TO HAVE BEDPAN REMOVED BUT PT HAS NOT HAD A BM YET, PT STATES "JUST TAKE IT OFF. I'LL CALL IF I NEED IT." PT ASKING TO BE PULLED UP IN BED, PULLED PT UP IN BED. ASSISTED WITH SETTING UP TRAY, PT OKAY WITH PLACING TELE BACK ON. TELE PUT BACK ON. PT STATES "I'M OKAY NOW" WILL CONTINUE TO MONITOR. CALL LIGHT IN REACH. BED IN LOWEST POSITION.
--- NOTE | 2019-11-03 18:34 | NUR ---
CHECKED PT TELE MONITOR, NOTED PT SB @ 50 BMP. CHECKED ON PT AT BEDSIDE. PT REPORTS PAIN AND SOME DIZZINESS, BUT MORE PAIN TO SHOULDER. CHECK VITAL SIGNS HR:77, BP:113/88, MAP:96, SPO2:97% ON RA. PT HR WENT BACK UP TO 70S SUSTAINING 70S. WILL CONTINUE TO MONITOR. CALL LIGHT IN REACH. BED IN LOWEST POSITION.
[2019-11-03 18:36] VITALS: BP 113/88
--- NOTE | 2019-11-03 18:57 | NUR ---
PT IS RESTING IN BED. BREATHING IS EVEN AND UNLABORED ON ROOM AIR. PT HAS AN IV TO THE RIGHT FOREARM THAT IS D/C/I AND INFUSING NS. THE PT BED IS IN THE LOWEST PSOTION AND CALL LIGHT IS WITHIN REACH. PT HAD FAIR APPETTIE DURING THE DAY. WILL ENDORSE TO ONCOMMING SHIFT.
[2019-11-03 22:54] VITALS: BP 125/70
--- NOTE | 2019-11-03 23:03 | NUR ---
Received pt in bed Condition stable No signs of distress Complained of right shoulder pain Medicated w/ Shickley, reported relief
--- NOTE | 2019-11-04 02:47 | NUR ---
DI Ball,RECEIVED NEW ORDER FROM ,MORPHINE 4 MG IVPRN FOR SEVERE PAIN AN DO XRAY ON RIGHT SHOULDER,ORDERS PUT IN [facility],
[2019-11-04 05:29] VITALS: BP 134/79
--- NOTE | 2019-11-04 06:11 | NUR ---
ENTERED NEW ORDERS TO [facility] OBT[facility] BY STRUCTURAL SHOP HELPER ABIEL,TO D/C MORPHINE,NORCO 5/325MG AND TO START NORCO 10/325 MG I TABE EVERY 4 HOURS PRN FOR SEVERE PAIN,BENADRYL 50 MG IV EVERY 6 HOURS PRN FOR ITCHINESS.
--- NOTE | 2019-11-04 06:53 | NUR ---
Alert and disoriented Slept somewhat overnight Condition stable All due care rendered, no signs of distress noted Complaining of right shoulder pain, not relieved by [place] x2 Dr. Razo notified about pain control, ordered Morphine 4 mg IVP, pt had a reaction to morphine, b/l forearm had hives immediately after IVP Morphine and complaining of itchiness, Dr. Razo notified, d/c IV morphine and increased pt's [place] to 10 mg, ordered IVP Benadryl and given to patient. No further itchiness at this time, no other symptoms related to morphine reaction noted Right shoulder x-ray ordered by Dr. Razo to be done this am for continuous right shoulder pain. Pt reports slight improvement to right shoulder Incontinence care provided, skin care maintained
[2019-11-04 07:31] LABS: BASOPHIL % 0.7 % (0-2); PLATELET COUNT 169 x10^3mcL (130-400)
[2019-11-04 07:42] LABS: CALCIUM 8.1 mg/dL (8.5-10.1); CARBON DIOXIDE 23.5 mmol/L (21-32); CHLORIDE SERUM 107 mmol/L (98-107); CREATININE SERUM 0.5 mg/dL (0.7-1.3); GLUCOSE SERUM 91 mg/dL (74-106); MAGNESIUM 2.1 mg/dL (1.8-2.4); PHOSPHOROUS 2.6 mg/dL (2.5-4.9); POTASSIUM SERUM 3.7 mmol/L (3.5-5.1); SODIUM SERUM 138 mmol/L (136-145)
[2019-11-04 07:47] LABS: RED CELL DISTRIBUTION WIDTH 15.2 % (11.5-14.5)
--- NOTE | 2019-11-04 09:13 | NUR ---
RECIEVED PT AAOX3 WITH SOME FORGETFULNESS, AND IN A STABLE CONDITION WITH NO SIGNS OF ANY DISTRESS NOTED. PT IS A 73Y MALE WHO WAS ADMITTED WITH A CC OF WEAKNESS AND AN ADMITTING DX OF GENERALIZED WEAKNESS. HE IS ON ROOM AIR WITH GOOD SATURATION, HAS GOOD PALPABLE PULSES THROUGHOUT WITH NO EDEMA NOTED. HE IS ON A CARDIAC DIET, AND IS GETTING NS AT 80CC/HR INTO THE LFA IV. HE IS SCHEDULED TO GET A RIGHT SHOULDER XR TODAY. HE HAS ALLERGIES TO BEE VENOM AND BASED ON THE REPORT FROM LAST NIGHT POSSIBLY A MORPHINE ALLERGY WELL AFTER GETTING IVP MORPHINE LAST NIGHT HE BECAME ITCHY AND HAD HIVES ON HIS ARM. ACTIVE BOWEL SOUNDS AND ABD SOFT AND NONDISTENDED.BED IN LOW POSITION AND CALL LIGHT IN REACH. WILL CONTINUE TO MONITOR.
[2019-11-04 09:17] VITALS: BP 123/75
--- NOTE | 2019-11-04 12:13 | NUR ---
RIGHT SHOULDER XR SHOWS NO EVIDENCE OF ACUTE FRACTURE OR DISLOCATION. WILL CONTINUE TO MONITOR.
[2019-11-04 12:50] VITALS: BP 123/77
[2019-11-04 15:45] VITALS: BP 155/86
--- NOTE | 2019-11-04 17:21 | NUR ---
PT REMAINED STABLE THROUGHOUT THE REMAINDER OF THE SHIFT. ALL INTERVENTIONS CARRIED OUTM PER PROTOOCOL WITH NO SIGNIFICANT CHANGES IN PT STATUS NOTED. NO BED AVAILABLE TONIGHT SO DISCHARGED MAY BE TOMORROW. PAIN MEDICATION REQUESTED AND GIVEN AT 1528 PER PT COMPLAINT OF PAIN. WILL CONTINUE TO MONITOR.
--- NOTE | 2019-11-04 20:12 | NUR ---
PT RECIEVED AAO FORGETFUL REG RESP NO SOB,PT HAS HL TO THE LT HAND SITE INTACT,ABDO IS SOFT WITH ACTIVE BOWEL SOUNDS,PT ON TELE MONITOR AND IN NSR NO ECTOPY OR CHEST PAIN ATTHSI TIME,BED IN THE LOW POSITION AND LOCKED,CALL LIGHT EASY REACHED AND WILL CONTINUE TO MONITOR.
[2019-11-04 21:00] VITALS: BP 132/73
--- NOTE | 2019-11-05 01:12 | NUR ---
PT FROM ELIZABETH SEVILLA. PATIENT AXOX4 NO S/S OF DISTRESS. PATIENT C/ OF SHOULDER AND ARM PAIN AT THIS TIME. PATIENT BREATHING EVEN AND UNLABORED ON RA DIM AT THE BASES BILATERAL. TELE 20 SR AT THIS TIME. MODERATE RADIAL AND PEDAL PULSES. ACTIVE BOWELS, FLAT ROUND NON TENDER. VOIDS FREELY IN THE URINAL. WILL CONTINUE TO MONITOR PATIENT AND OFFER SUPPORT.
--- NOTE | 2019-11-05 03:35 | NUR ---
PT C/O RIGHT SHOULDER PAIN AND RIGHT ARM PAIN. MEDICATION GIVEN ORDERED. NORCO PRN. NO S/S OF DISTRESS. PATIENT BREATHING EVEN AND UNLABORED ON RA 98% SPO2. WILL CONTINUE TO MONITOR
[2019-11-05 06:30] VITALS: BP 143/76
--- NOTE | 2019-11-05 07:25 | NUR ---
RECEIVED PATIENT FROM PM NURSE, ALERT ANND ORIENTED X 4, NO C/O PAIN DURING MY ASSESMENT, LUNG SOUNDS CLEAR ON RA, GENERALIZED WEAKNESS, L ARM WEAKNESS REPORTED , IV IN LFA PATENT, ON TELEMETRY, BOWEL SOUNDS ACTIVE, LAST BM 11/04, SKIN INTACT, PEDAL PULSES PRESENT AND EQUAL, NO EDEMA NOTED PATIENT PLEASANT AND COOPERATIVE
--- NOTE | 2019-11-05 07:44 | NUR ---
PATIENT C/O 7/10 PAIN IN R SHOULDER, WILL ADMINISTR PRN PAIN MEDICATION PER EMAR
[2019-11-05 08:25] VITALS: BP 139/84
[2019-11-05 12:36] VITALS: BP 131/69
--- NOTE | 2019-11-05 16:00 | NUR ---
PATIENT D/C TO SKILLED FACILTY, VIA BLS, DISCHARGE INSTRUCTIONS PROVIDED TO PATIENT, IV DC'D WITH CATHETER INTACT, REPORT GIVEN TO IREF RECEIVING NURSE
[2019-11-05 17:10] VITALS: BP 122/74
== END 2019-11-05 16:11 | disposition home or self-care (01) ==
LOC: ED 14:03 → DU 16:53 → MU 11-05 00:19 → DU 11-05 02:04
PROVIDERS: Emergency Medicine; ADMIT Hospitalist; ATTEND Hospitalist
DX: L80 Vitiligo (principal); I10 Essential (primary) hypertension; F15.10 Other stimulant abuse, uncomplicated
CPT/HCPCS: 36600; 82962; 83880; 85378; 87804; 97110-GP; 97530-GP; G0378; G0480; J1200; J1650; J2270; J3411; J3475; J3490; J7030; Q0092; U0003-CS